=== PATIENT | female | born 1965 | race Caucasian/White ===

== ENCOUNTER 2016-06-11 23:38 | Emergency (ER) | payer OTHER ==
[2016-06-11 23:53] VITALS: O2SAT 98
[2016-06-12] MEDS ORDERED: Sodium Chloride 0.9% 1000 ML 1,000 ML IV STA (00:22)
[2016-06-12] MEDS ORDERED: Reglan 10 MG/2 ML IV ONE (00:22)
[2016-06-12] MEDS ORDERED: BENADRYL 50 MG/ML IV ONE (00:22)
--- NOTE | 2016-06-12 00:27 | ERPHSYRPT ---
- History of Present Illness Time Seen by Provider: 06/12/16 00:05 Source: patient Patient Subjective Stated Complaint: pt states she has had a migraine since about 3. took 2 imitrex at home with no relief. Triage Nursing Assessment: pt alert and oriented, answers questions approp. speech clear. pt ambulatory with steady gait noted. pupils equal and reactive. ext strength equal and strong. Physician History: CC: headache Hx: 50 y/o patient with hx of migraine headaches. She had typical migraine headache for her start at around 3PM and gradually worsen. She has photophobia. She felt sweaty and dizzy. She took imitrex X 2 without relief. Last headache this bad was 1 year ago. No fever or chills. No injury. drove her here. 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 She is a patient of Dr Bennett. ALL: PCN, paregoric, percodan Meds: Levimir which might have worsened headaches, imitrex prn Social: Nonsmoker Timing/Duration: today (3PM) Quality: aching, throbbing Head Pain Location: global Severity of Pain-Max: severe Severity of Pain-Current: severe Recent Head Trauma: occasional headaches Allergies/Adverse Reactions: shellfish derived Allergy (Intermediate, Verified 12/25/15 17:55) Swelling alcohol Allergy (Verified 12/25/15 17:55) anaphylaxis oxycodone HCl [From Percodan] Allergy (Verified 12/25/15 17:55) oxycodone terephthalate [From Percodan] Allergy (Verified 09/10/15 21:17) penicillin G Allergy (Verified 12/25/15 17:55) Penicillins Allergy (Verified 09/10/15 21:17) venom-honey bee [bee venom (honey bee)] Allergy (Verified 12/25/15 17:55) COCONUT Allergy (Uncoded 12/25/15 17:55) LEMON Allergy (Uncoded 12/25/15 17:55) PERIGORIC Allergy (Uncoded 12/25/15 17:55) Home Medications: Loratadine [Claritin] 5 mg PO 12/22/15 [History] Insulin Glargine [Lantus Insulin] 10 unit SQ HS 06/11/16 [History] Hx Tetanus, Diphtheria Vaccination/Date Given: Yes (up to date) Hx Influenza Vaccination/Date Given: No Hx Pneumococcal Vaccination/Date Given: No Immunizations Up to Date: Yes - Review of Systems Constitutional: No Fever, No Chills Eyes: Photophobia, No Vision Changes Ears, Nose, & Throat: No Symptoms Respiratory: No Cough, No Dyspnea Cardiac: No Chest Pain Abdominal/Gastrointestinal: Nausea, No Abdominal Pain, No Vomiting, No Diarrhea Genitourinary Symptoms: No Symptoms Musculoskeletal: No Back Pain, No Neck Pain, No Fall, No Injury Skin: No Rash Neurological: Dizziness, Headache, No Focal Weakness, No Parasthesia All Other Systems: Reviewed and Negative - Past Medical History Pertinent Past Medical History: Yes Neurological History: Migraines ENT History: No Pertinent History Cardiac History: No Pertinent History Respiratory History: No Pertinent History Endocrine Medical History: Diabetes Type II Musculoskeletal History: Other GI Medical History: No Pertinent History History: No Pertinent History Psycho-Social History: No Pertinent History Female Reproductive Disorders: No Pertinent History - Past Surgical History Past Surgical History: Yes Neuro Surgical History: No Pertinent History Cardiac: No Pertinent History Respiratory: No Pertinent History Gastrointestinal: No Pertinent History Genitourinary: No Pertinent History Musculoskeletal: Other Female Surgical History: No Pertinent History Other Surgical History: arthroscopic knee surgery on left knee in 2002 - Social History Smoking Status: Former smoker Exposure to second hand smoke: No Drug Use: none Patient Lives Alone: No Significant Family History: no pertinent family hx - Female History Hx Last Menstrual Period: post Hx Now: No - Nursing Vital Signs Nursing Vital Signs: Initial Vital Signs Temperature 97.9 F Pulse Rate 75 Respiratory Rate 18 Blood Pressure 160/72 Pain Intensity 8 - Physical Exam General Appearance: alert Eye Exam: PERRL/EOMI, photophobia Ears, Nose, Throat Exam: normal ENT inspection, moist mucous membranes Neck Exam: normal inspection, non-tender, supple Respiratory Exam: normal breath sounds, lungs clear Cardiovascular Exam: regular rate/rhythm, No murmur Gastrointestinal/Abdominal Exam: soft, No tenderness, No distention, No mass, No guarding Extremity Exam: normal inspection, normal range of motion Mental Status Exam: alert, oriented x 3, cooperative Motor/Sensory Exam: no motor deficit, no sensory deficit Skin Exam: warm, dry, No rash SpO2 Interpretation: normal SpO2: 98 Oxygen Delivery: Room Air - Course Nursing assessment & vital signs reviewed: Yes Ordered Tests: Active Orders 24 hr Category Date Time Status Accucheck STAT Care 06/12/16 00:22 Active IV Insertion STAT Care 06/12/16 00:22 Active Medication Summary Discontinued Medications Generic Name Dose Route Start Last Admin Trade Name Andreina PRN Reason Stop Dose Admin Diphenhydramine HCl 25 mg 06/12/16 00:22 06/12/16 00:46 Benadryl 50 Mg/Ml IV 06/12/16 00:23 25 mg STAT ONE Administration Diphenhydramine HCl Confirm 06/12/16 00:44 Benadryl 50 Mg/Ml Administered 06/12/16 00:45 Dose 50 mg .ROUTE .STK-MED ONE Sodium Chloride 1,000 mls @ 999 mls/hr 06/12/16 00:22 06/12/16 00:46 Sodium Chloride 0.9% 1000 Ml IV 06/12/16 01:22 999 mls/hr .Q1H1M STA Administration Sodium Chloride Confirm 06/12/16 00:44 Sodium Chloride 0.9% 1000 Ml Administered 06/12/16 00:45 Dose 1,000 mls @ ud .ROUTE .STK-MED ONE Metoclopramide HCl 10 mg 06/12/16 00:22 06/12/16 00:46 Reglan 10 Mg/2 Ml IV 06/12/16 00:23 10 mg STAT ONE Administration Metoclopramide HCl Confirm 06/12/16 00:44 Reglan 10 Mg/2 Ml Administered 06/12/16 00:45 Dose 10 mg .ROUTE .STK-MED ONE - Progress Progress Note: 06/12/16 01:28 Pt was given benadryl and reglan with good headache relief. Will release with instructions. Counseled pt/family regarding: diagnosis, need for follow-up - Departure Time of Disposition: 01:29 Departure Disposition: Home Clinical Impression: Migraine headache Qualifiers: Migraine type: without aura Status migrainosus presence: with status migrainosus Intractability: intractable Qualified Code(s): G43.011 - Migraine without aura, intractable, with status migrainosus Condition: Stable Critical Care Time: No Referrals: KENNETH BENNETT [Primary Care Provider] - Instructions: Headache Additional Instructions: HEADACHE 1. After discharge from the emergency department, you should rest at home in a cool, dark, quiet place for 12-24 hours. 2. If any of the following signs or symptoms are noticed, you should be re- evaluated right away: A. Visual changes B. Stiff Neck C. Change in quality or location of pain D. Fever E. Recurrent vomiting 3. If pain medications were prescribed or given, they may cause drowsiness. No driving tonite and stay with family. Follow up with Dr Bennett. Return for problems or concerns.
[2016-06-12] MEDS ORDERED: Reglan 10 MG/2 ML ONE (00:44)
[2016-06-12] MEDS ORDERED: Sodium Chloride 0.9% 1000 ML 1,000 ML ONE (00:44)
[2016-06-12] MEDS ORDERED: BENADRYL 50 MG/ML ONE (00:44)
[2016-06-12 01:26] VITALS: BP 160/72; PULSE 75
== END 2016-06-12 01:40 | disposition home or self-care (01) ==
LOC: ED 23:38
DX: G43.011 Migraine without aura, intractable, with status migrainosus (principal); E11.9 Type 2 diabetes mellitus without complications; Z79.899 Other long term (current) drug therapy
CPT/HCPCS: 36000; 82962; 96360; 96374; 96375; 99283; J1200

== ENCOUNTER 2016-10-30 01:06 | Emergency (ER) | payer OTHER ==
[2016-10-30 01:16] VITALS: BP 161/95; PULSE 72; O2SAT 98
--- NOTE | 2016-10-30 01:28 | ERPHSYRPT ---
- History of Present Illness Time Seen by Provider: 10/30/16 01:20 Source: patient Exam Limitations: no limitations Patient Subjective Stated Complaint: PATIENT HAD SHOULDER INJURY JULY 03 AND SINCE THEN SHES HAD mri THEY HAVE HER ON bACLOFEN AND SHES SEEING ORTHO , BUT TERRENCE THE DOG JUMPED ON INJURED SHOULDER Triage Nursing Assessment: ANDREINA FLOREZ JUMPED UP ON HER SHOULDER THAT WAS INJURED BACK IN JUNE AND SHE IS STILL SEEKING TREATMENT FOR. SAYS FROM JUNE INJURY SHE HAS THREE TEARS AND DEFORMITY. 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 NO SWELLING NOTED , Physician History: ABOUT 1 HOUR AGO AT HOME PT'S [facility] JUMPED WITH THE DOG'S HEAD HITTING PT'S LEFT SHOULDER WITH RESULTANT PAIN; ADMITS TO PRIOR INJURY OF THE LEFT SHOULDER IN MAY 2016 WITH ONGOING PAIN. PT STATES SHE HAD AN MRI OF THE LEFT SHOULDER LAST WEEK WHICH SHOWED TEARS AND SHE HAS AN APPOINTMENT WITH A SPECIALIST FOR EVALUATION. Allergies/Adverse Reactions: shellfish derived Allergy (Intermediate, Verified 12/25/15 17:55) Swelling alcohol Allergy (Verified 12/25/15 17:55) anaphylaxis oxycodone HCl [From Percodan] Allergy (Verified 12/25/15 17:55) oxycodone terephthalate [From Percodan] Allergy (Verified 09/10/15 21:17) penicillin G Allergy (Verified 12/25/15 17:55) Penicillins Allergy (Verified 09/10/15 21:17) venom-honey bee [bee venom (honey bee)] Allergy (Verified 12/25/15 17:55) COCONUT Allergy (Uncoded 12/25/15 17:55) LEMON Allergy (Uncoded 12/25/15 17:55) PERIGORIC Allergy (Uncoded 12/25/15 17:55) Home Medications: Loratadine [Claritin] 5 mg PO 12/22/15 [History] Insulin Glargine [Lantus Insulin] 10 unit SQ HS 06/11/16 [History] Baclofen 10 mg [Lioresal 10 mg] 10 mg PO TID 10/30/16 [History] Hx Tetanus, Diphtheria Vaccination/Date Given: Yes Hx Influenza Vaccination/Date Given: No Hx Pneumococcal Vaccination/Date Given: No Immunizations Up to Date: Yes - Review of Systems Musculoskeletal: Joint Pain (LEFT SHOULDER) - Past Medical History Pertinent Past Medical History: Yes Neurological History: Migraines ENT History: No Pertinent History Cardiac History: No Pertinent History Respiratory History: No Pertinent History Endocrine Medical History: Diabetes Type II Musculoskeletal History: Other GI Medical History: No Pertinent History History: No Pertinent History Psycho-Social History: No Pertinent History Female Reproductive Disorders: No Pertinent History Other Medical History: PYMIA-BLOOD INFECTION - Past Surgical History Past Surgical History: Yes Neuro Surgical History: No Pertinent History Cardiac: No Pertinent History Respiratory: No Pertinent History Gastrointestinal: No Pertinent History Genitourinary: No Pertinent History Musculoskeletal: Other Female Surgical History: No Pertinent History Other Surgical History: arthroscopic knee surgery on left knee in 2002 - Social History Smoking Status: Never smoker Exposure to second hand smoke: No Drug Use: none Patient Lives Alone: No Significant Family History: no pertinent family hx - Female History Hx Now: No - Nursing Vital Signs Nursing Vital Signs: Initial Vital Signs Temperature 98.2 F Temperature Source Oral Pulse Rate 72 Respiratory Rate 20 Blood Pressure [] 161/95 Pain Intensity 9 - Physical Exam General Appearance: alert Shoulder Exam: limited ROM (ABDUCTION OF THE LEFT SHOULDER TO 30 DEGREES(SAME BEFORE TONIGHTS TRAUMA). ), soft tissue tenderness (LEFT SHOULDER MILDLY TENDER ANTERIORLY WITHOUT EDEMA, ERYTHEMA OR BRUISING.) Elbow/Forearm Exam: normal inspection, normal ROM Wrist Exam: normal inspection, normal ROM Hand Exam: limited ROM (ABOUT 80% FULL FLEXION OF THE LEFT INDEX FINGER(ONGOING SINCE 05/24). ) Neuro/Tendon Exam: normal sensation Mental Status Exam: alert, cooperative Skin Exam: warm, dry SpO2 Interpretation: normal SpO2: 98 Oxygen Delivery: Room Air - Course Nursing assessment & vital signs reviewed: Yes - Radiology Exams Left Shoulder X-ray Interpretation: Interpreted by me, No Fracture Ordered Tests: Active Orders 24 hr Category Date Time Status Sling Application STAT Care 10/30/16 01:30 Active SHOULDER Stat Exams 10/30/16 01:30 Ordered Medication Summary Discontinued Medications Generic Name Dose Route Start Last Admin Trade Name Freq PRN Reason Stop Dose Admin Ketorolac Tromethamine 60 mg 10/30/16 01:29 10/30/16 01:46 Toradol 30 Mg Injection IM 10/30/16 01:30 60 mg STAT ONE Administration Ketorolac Tromethamine Confirm 10/30/16 01:42 Toradol 30 Mg Injection Administered 10/30/16 01:43 Dose 60 mg .ROUTE .STK-MED ONE - Departure Time of Disposition: 01:52 Departure Disposition: Home Clinical Impression: LEFT SHOULDER SPRAIN Condition: Fair Critical Care Time: No Referrals: LUCINDA PELLETIER [Primary Care Provider] - Instructions: Shoulder Sprain Additional Instructions: FOLLOW UP WITH PRIVATE DOCTOR TOMORROW. WEAR LEFT ARM SLING FOR COMFORT. Prescriptions: Naproxen [Naprosyn] 500 mg PO [id number] PRN #0 tablet PRN Reason: Pain
[2016-10-30] MEDS ORDERED: TORAdol 30 mg Injection IM ONE (01:29)
[2016-10-30] MEDS ORDERED: TORAdol 30 mg Injection ONE (01:42)
--- NOTE | 2016-10-30 08:47 | XRAY ---
Indication: Pain following injury. Comparison: August 12, 2016. 3 views of the left shoulder obtained. Again no bony, articular, or soft tissue abnormalities.
== END 2016-10-30 02:05 | disposition home or self-care (01) ==
LOC: ED 01:06
DX: S43.402A Unspecified sprain of left shoulder joint, initial encounter (principal); W54.1XXA Struck by dog, initial encounter; M25.512 Pain in left shoulder
CPT/HCPCS: 73030; 96372; 99284; J1885

== ENCOUNTER 2016-12-07 23:39 | Emergency (ER) | payer OTHER ==
[2016-12-07] MEDS ORDERED: Sodium Chloride 0.9% 1000 ML 1,000 ML IV SCH (23:45)
--- NOTE | 2016-12-07 23:55 | ERPHSYRPT ---
- History of Present Illness Time Seen by Provider: 12/07/16 23:49 Source: patient Exam Limitations: no limitations Physician History: pt has chronic left shoulder pain from frequent dislocations with brachial plexus injury and labrum tears on recent MRI, and fell on this same shoulder tonight , although does not feel dislocated to pt , just increased pain; no other complaint of injury. neurovascular is intact, but stable chronic paresthesias are present in left UE ; no neck pain or trauma tonight. no CP or SObreath. ROM left shoulder is limited and about same as usual per pt. tender left shoulder , increased above chronic baseline per pt. Occurred: just prior to arrival Method of Injury: fell Quality: constant, sharpness, stabbing, throbbing Severity of Pain-Max: moderate Severity of Pain-Current: moderate Extremities Pain Location: shoulder: left Modifying Factors: Improves With: immobilization, movement Associated Symptoms: none Allergies/Adverse Reactions: shellfish derived Allergy (Intermediate, Verified 12/07/16 23:57) Swelling alcohol Allergy (Verified 12/07/16 23:57) anaphylaxis oxycodone HCl [From Percodan] Allergy (Verified 12/07/16 23:57) oxycodone terephthalate [From Percodan] Allergy (Verified 12/07/16 23:57) penicillin G Allergy (Verified 12/07/16 23:57) Penicillins Allergy (Verified 12/07/16 23:57) venom-honey bee [bee venom (honey bee)] Allergy (Verified 12/07/16 23:57) COCONUT Allergy (Uncoded 12/07/16 23:57) LEMON Allergy (Uncoded 12/07/16 23:57) PERIGORIC Allergy (Uncoded 12/07/16 23:57) Home Medications: Insulin Detemir [Levemir] 10 unit SQ DAILY 12/07/16 [History] Hx Tetanus, Diphtheria Vaccination/Date Given: Yes Hx Influenza Vaccination/Date Given: No Hx Pneumococcal Vaccination/Date Given: No - Review of Systems Constitutional: No Fever, No Chills Eyes: No Symptoms Ears, Nose, & Throat: No Symptoms Respiratory: No Cough, No Dyspnea Cardiac: No Chest Pain, No Edema, No Syncope Abdominal/Gastrointestinal: No Abdominal Pain, No Nausea, No Vomiting, No Diarrhea Genitourinary Symptoms: No Dysuria Musculoskeletal: Fall, Joint Pain, No Back Pain, No Neck Pain Skin: No Rash Neurological: No Dizziness, No Focal Weakness, No Sensory Changes Psychological: No Symptoms Endocrine: No Symptoms All Other Systems: Reviewed and Negative - Past Medical History Pertinent Past Medical History: Yes Neurological History: Migraines ENT History: No Pertinent History Cardiac History: No Pertinent History Respiratory History: No Pertinent History Endocrine Medical History: Diabetes Type II Musculoskeletal History: Other GI Medical History: No Pertinent History History: No Pertinent History Psycho-Social History: No Pertinent History Female Reproductive Disorders: No Pertinent History Other Medical History: PYMIA-BLOOD INFECTION - Past Surgical History Past Surgical History: Yes Neuro Surgical History: No Pertinent History Cardiac: No Pertinent History Respiratory: No Pertinent History Gastrointestinal: No Pertinent History Genitourinary: No Pertinent History Musculoskeletal: Other Female Surgical History: No Pertinent History Other Surgical History: arthroscopic knee surgery on left knee in 2001 - Social History Smoking Status: Never smoker Exposure to second hand smoke: No Drug Use: none Patient Lives Alone: No Significant Family History: no pertinent family hx - Female History Hx Now: No - Nursing Vital Signs Nursing Vital Signs: Initial Vital Signs Temperature 98.2 F Temperature Source Oral Pulse Rate 74 Respiratory Rate 16 Blood Pressure [] 144/69 Pain Intensity 5 - Physical Exam General Appearance: no apparent distress, alert Eyes, Ears, Nose, Throat Exam: moist mucous membranes Neck Exam: normal inspection, non-tender, supple, full range of motion Cardiovascular/Respiratory Exam: chest non-tender, normal breath sounds, regular rate/rhythm, no respiratory distress Abdominal Exam: non-tender, No guarding Back Exam: normal inspection, No vertebral tenderness Shoulder Exam: bone tenderness, limited ROM, pain, soft tissue tenderness Elbow/Forearm Exam: normal inspection, non-tender, no evidence of injury, normal ROM Wrist Exam: normal inspection, non-tender, no evidence of injury, normal ROM Hand Exam: normal inspection, non-tender, no evidence of injury, deformity ( stable limited ROM left index at PIP without change and not injured in this fall per pt. ) DTR - Upper Extremity Exam: bicep (R): 2+, bicep (L): 2+, tricep (R): 2+, tricep (L): 2+ Neuro/Tendon Exam: normal sensation, normal motor functions, normal tendon functions Mental Status Exam: alert, oriented x 3, cooperative Skin Exam: normal color, warm, dry - Course Nursing assessment & vital signs reviewed: Yes - Radiology Exams Left Shoulder X-ray Interpretation: Reviewed by me, Other (possible chip avulsion fx and hill sachs of unknown age) Ordered Tests: Active Orders 24 hr Category Date Time Status IV Insertion STAT Care 12/07/16 23:57 Active SHOULDER Stat Exams 12/07/16 23:57 Ordered Medication Summary Generic Name Dose Route Start Last Admin Trade Name Freq PRN Reason Stop Dose Admin Sodium Chloride 1,000 mls @ 100 mls/hr 12/07/16 23:45 12/08/16 00:25 Sodium Chloride 0.9% 1000 Ml IV 01/06/17 23:44 100 mls/hr .Q10H APURVA Administration Discontinued Medications Generic Name Dose Route Start Last Admin Trade Name Freq PRN Reason Stop Dose Admin Diphenhydramine HCl 25 mg 12/07/16 23:57 12/08/16 00:24 Benadryl 50 Mg/Ml IV 12/07/16 23:58 25 mg STAT ONE Administration Diphenhydramine HCl Confirm 12/08/16 00:17 Benadryl 50 Mg/Ml Administered 12/08/16 00:18 Dose 50 mg .ROUTE .STK-MED ONE Diphenhydramine HCl 25 mg 12/08/16 00:52 12/08/16 01:02 Benadryl 50 Mg/Ml IV 12/08/16 00:53 25 mg STAT ONE Administration Diphenhydramine HCl Confirm 12/08/16 00:59 Benadryl 50 Mg/Ml Administered 12/08/16 01:00 Dose 50 mg .ROUTE .STK-MED ONE Ketorolac Tromethamine 30 mg 12/07/16 23:57 12/08/16 00:25 Toradol 30 Mg Injection IV 12/07/16 23:58 30 mg STAT ONE Administration Ketorolac Tromethamine Confirm 12/08/16 00:17 Toradol 30 Mg Injection Administered 12/08/16 00:18 Dose 30 mg .ROUTE .STK-MED ONE Morphine Sulfate 4 mg 12/07/16 23:57 12/08/16 00:24 Morphine Sulfate 4 Mg Inj IV 12/07/16 23:58 4 mg STAT ONE Administration Morphine Sulfate Confirm 12/08/16 00:18 Morphine Sulfate 4 Mg Inj Administered 12/08/16 00:19 Dose 4 mg .ROUTE .STK-MED ONE Morphine Sulfate 6 mg 12/08/16 00:52 12/08/16 01:06 Morphine Sulfate 10 Mg/Ml IV 12/08/16 00:53 6 mg STAT ONE Administration Morphine Sulfate Confirm 12/08/16 01:00 Morphine Sulfate 4 Mg Inj Administered 12/08/16 01:01 Dose 4 mg .ROUTE .STK-MED ONE Morphine Sulfate Confirm 12/08/16 01:06 Morphine Sulfate 2 Mg Inj Administered 12/08/16 01:07 Dose 2 mg .ROUTE .STK-MED ONE Ondansetron HCl 4 mg 12/07/16 23:57 12/08/16 00:25 Zofran 4 Mg/2 Ml Vial IV 12/07/16 23:58 4 mg STAT ONE Administration Ondansetron HCl Confirm 12/08/16 00:17 Zofran 4 Mg/2 Ml Vial Administered 12/08/16 00:18 Dose 4 mg .ROUTE .STK-MED ONE - Progress Progress: improved, re-examined Progress Note: 12/08/16 00:53 pain controlled , advised pt of need to f/u ortho /PCP and to return meantime if not improving. no objective evidence for any increased injury to brachial plexus injury at this time on exam. 12/08/16 00:56 c-spine remains nontender and without symptoms meeting chinese criteria. 12/08/16 00:59 pt declines sling/immob at this time , and will use her own. pt has phillip hydrocodone in past , but only reacts to oxycodone and paragoric per her hx. Counseled pt/family regarding: diagnosis, need for follow-up, rad results - Departure Time of Disposition: 00:55 Departure Disposition: Home Clinical Impression: left shoulder exacerbation Condition: Good Critical Care Time: No Referrals: LUCINDA PELLETIER [Primary Care Provider] - Instructions: Shoulder Fracture, Shoulder Pain Additional Instructions: followup with your primary Dr. or ORtho , final radiology reading will be later tomorrow. return meantime if any concerns or new symptoms. followup with your Dr for BP if remains above 130/85 Prescriptions: Hydrocodone/Acetaminophen [[place] 5-325 Tablet] 1 each PO Q4-6HPRN PRN #14 tablet PRN Reason: Pain Metaxalone [Skelaxin] 800 mg PO TID PRN #14 tablet
[2016-12-07] MEDS ORDERED: MORPHINE SULFATE 4 MG INJ IV ONE (23:57)
[2016-12-07] MEDS ORDERED: Zofran 4 MG/2 ML VIAL IV ONE (23:57)
[2016-12-07] MEDS ORDERED: TORAdol 30 mg Injection IV ONE (23:57)
[2016-12-07] MEDS ORDERED: BENADRYL 50 MG/ML IV ONE (23:57)
[2016-12-08] MEDS ORDERED: Zofran 4 MG/2 ML VIAL ONE (00:17)
[2016-12-08] MEDS ORDERED: BENADRYL 50 MG/ML ONE ×2 (00:17→00:59)
[2016-12-08] MEDS ORDERED: TORAdol 30 mg Injection ONE (00:17)
[2016-12-08] MEDS ORDERED: MORPHINE SULFATE 4 MG INJ ONE ×2 (00:18→01:00)
[2016-12-08] MEDS ORDERED: Sodium Chloride 0.9% 1000 ML 1,000 ML ONE (00:18)
[2016-12-08] MEDS ORDERED: BENADRYL 50 MG/ML IV ONE (00:52)
[2016-12-08] MEDS ORDERED: MORPHINE SULFATE 10 MG/ML IV ONE (00:52)
[2016-12-08] MEDS ORDERED: MORPHINE SULFATE 2 MG INJ ONE (01:06)
[2016-12-08 02:15] VITALS: BP 126/73; PULSE 72; O2SAT 96
--- NOTE | 2016-12-08 08:35 | XRAY ---
Indication: Shoulder pain following fall. Comparison: October 30, 2016. 3 views of the left shoulder demonstrates stable tiny greater tuberosity osteophyte. No new/acute bony, articular, or soft tissue abnormalities.
== END 2016-12-08 02:20 | disposition home or self-care (01) ==
LOC: ED 23:39
DX: M25.512 Pain in left shoulder (principal); W19.XXXA Unspecified fall, initial encounter; E11.9 Type 2 diabetes mellitus without complications; Z79.899 Other long term (current) drug therapy
CPT/HCPCS: 36000; 73030; 96360; 96374; 96375; 96376; 99284; J1200; J1885; J2270; J2405

== ENCOUNTER 2017-09-01 22:02 | Emergency (ER) | payer OTHER ==
[2017-09-01] MEDS ORDERED: Hydromorphone 1 mg/ml Ampule IV ONE (22:43)
[2017-09-01] MEDS ORDERED: Phenergan 25 MG INJ IV ONE (22:43)
[2017-09-01] MEDS ORDERED: Sodium Chloride 0.9% 1000 ML 1,000 ML IV SCH (22:45)
--- NOTE | 2017-09-01 23:03 | ERPHSYRPT ---
- History of Present Illness Time Seen by Provider: 09/01/17 22:32 Source: patient Exam Limitations: no limitations Patient Subjective Stated Complaint: Headache Triage Nursing Assessment: Pt arrives to ER with c/o headache that began 3 days ago stating woke up with headache. States hit her head 1 week ago today, "saw stars", denies LOC or any problems since then until 3 days ago. Pt also checked blood sugar at 2130 found to be 310, took 11 units of Lantus and 750mg Metformin immediately after. Pt states sugar has been fine the past couple days , from 90's to 110's. Pt also hypertensive upon arrival, rechecked with larger, more appropriate fitting cuff and found to be accurate. Pt states has hx of Migraines but this is different stating is normally on right side and no accompanied nausea. today states has nausea without vomiting and pain is from left temporal to right temporal and pounding. Pain not relieved by Imitrex, in fact seemed to make worse. States also took 1/4th [place] pill with minimal relief. A&OX4 Physician History: ONE WEEK AGO PT HIT THE BACK OF HER HEAD ON A JEEP AND SAW STARS. THREE DAYS AGO PT STARTED WITH A BI-TEMPORAL/FRONTAL HEADACHE, DIZZINESS(VERTIGO) AND NAUSEA. PT DENIES SHORTNESS OF AIR, WEAKNESS, NUMBNESS/TINGLING, VOMITING. Allergies/Adverse Reactions: shellfish derived Allergy (Intermediate, Verified 09/01/17 22:31) Swelling alcohol Allergy (Verified 09/01/17 22:31) anaphylaxis oxycodone HCl [From Percodan] Allergy (Verified 09/01/17 22:31) oxycodone terephthalate [From Percodan] Allergy (Verified 09/01/17 22:31) penicillin G Allergy (Verified 09/01/17 22:31) Penicillins Allergy (Verified 09/01/17 22:31) venom-honey bee [bee venom (honey bee)] Allergy (Verified 09/01/17 22:31) COCONUT Allergy (Uncoded 09/01/17 22:31) LEMON Allergy (Uncoded 09/01/17 22:31) PERIGORIC Allergy (Uncoded 09/01/17 22:31) Home Medications: Insulin Detemir [Levemir] 10 unit SQ DAILY 12/07/16 [History] Diclofenac Sodium 75 mg PO BID 09/01/17 [History] Epinephrine [Epipen] 0.3 mg IM CLARIFY PRN 09/01/17 [History] Gabapentin [Gabapentin] 300 mg PO TID 09/01/17 [History] Indomethacin 50 mg PO TID 09/01/17 [History] Melatonin 4 mg PO HS PRN 09/01/17 [History] Metformin HCl 500 mg [Glucophage 500 MG] 750 mg PO BID 09/01/17 [History] Phentermine HCl 37.5 mg PO DAILY 09/01/17 [History] Sumatriptan Succinate [Imitrex 50 mg] 50 mg PO Q6HPRN PRN 09/01/17 [History] Hx Tetanus, Diphtheria Vaccination/Date Given: Yes Hx Influenza Vaccination/Date Given: Yes Hx Pneumococcal Vaccination/Date Given: Yes Immunizations Up to Date: Yes - Review of Systems Respiratory: No Dyspnea Abdominal/Gastrointestinal: Nausea, No Vomiting Neurological: Dizziness, Headache, No Focal Weakness, No Sensory Changes All Other Systems: Reviewed and Negative - Past Medical History Pertinent Past Medical History: Yes Neurological History: Migraines ENT History: No Pertinent History Cardiac History: No Pertinent History Respiratory History: No Pertinent History Endocrine Medical History: Diabetes Type II Musculoskeletal History: Other GI Medical History: No Pertinent History History: No Pertinent History Psycho-Social History: No Pertinent History Female Reproductive Disorders: No Pertinent History Other Medical History: PYMIA-BLOOD INFECTION - Past Surgical History Past Surgical History: Yes Neuro Surgical History: No Pertinent History Cardiac: No Pertinent History Respiratory: No Pertinent History Gastrointestinal: No Pertinent History Genitourinary: No Pertinent History Musculoskeletal: Other Female Surgical History: No Pertinent History Other Surgical History: arthroscopic knee surgery on left knee in 2001 - Social History Smoking Status: Former smoker Exposure to second hand smoke: Yes Drug Use: none Patient Lives Alone: No Significant Family History: no pertinent family hx - Female History Hx Last Menstrual Period: postmenopausal Hx Now: No - Nursing Vital Signs Nursing Vital Signs: Initial Vital Signs Temperature 98.3 F 09/01/17 22:08 Pulse Rate 77 09/01/17 22:08 Respiratory Rate 18 09/01/17 22:08 Blood Pressure 185/86 09/01/17 22:08 O2 Sat by Pulse Oximetry 99 09/01/17 22:08 Pain Scale Pain Intensity 6 - Physical Exam General Appearance: alert Eye Exam: PERRL/EOMI Ears, Nose, Throat Exam: TMs normal, pharynx normal, moist mucous membranes Neck Exam: normal inspection, full range of motion Respiratory Exam: lungs clear Cardiovascular Exam: normal heart sounds Gastrointestinal/Abdomen Exam: soft, normal bowel sounds Back Exam: normal range of motion Extremity Exam: normal range of motion Neurologic Exam: alert, cooperative, normal mood/affect, sensation nml, No motor deficits, No motor weakness Skin Exam: warm, dry SpO2 Interpretation: normal SpO2: 99 Oxygen Delivery: Room Air - Course Nursing assessment & vital signs reviewed: Yes Ordered Tests: Active Orders 24 hr Category Date Time Status HEAD WITHOUT CONTRAST [CT] Stat Exams 09/01/17 22:42 Taken AMYLASE Stat Lab 09/01/17 23:10 Completed CBC W DIFF Stat Lab 09/01/17 23:10 Completed CMP Stat Lab 09/01/17 23:10 Completed CULTURE,URINE Stat Lab 09/01/17 22:43 Received LIPASE Stat Lab 09/01/17 23:10 Completed MAGNESIUM Stat Lab 09/01/17 23:10 Completed UA W/ MICROSCOPIC Stat Lab 09/01/17 22:43 Completed Medication Summary Generic Name Dose Route Start Last Admin Trade Name Freq PRN Reason Stop Dose Admin Sodium Chloride 1,000 mls @ 100 mls/hr 09/01/17 22:45 09/01/17 23:27 Sodium Chloride 0.9% 1000 Ml IV 10/01/17 22:44 100 mls/hr .Q10H APURVA Administration Ceftriaxone Sodium/Dextrose 1 g in 50 mls @ 100 mls/hr 09/01/17 23:51 23:57 Rocephin 1 Gm-D5w 50 Ml Bag IV 09/02/17 00:20 100 mls/hr STAT STA Administration Sodium Chloride 1,000 mls @ 999 mls/hr 09/01/17 23:52 09/01/17 23:55 Sodium Chloride 0.9% 1000 Ml IV 09/02/17 00:52 999 mls/hr .Q1H1M STA Administration Discontinued Medications Generic Name Dose Route Start Last Admin Trade Name Freq PRN Reason Stop Dose Admin Hydromorphone HCl 1 mg 09/01/17 22:43 09/01/17 23:26 Hydromorphone 1 Mg/Ml Ampule IV 09/01/17 22:44 1 mg STAT ONE Administration Hydromorphone HCl Confirm 09/01/17 23:13 Dilaudid 2 Mg Injection Administered 09/01/17 23:14 Dose 2 mg .ROUTE .STK-MED ONE Ceftriaxone Sodium/Dextrose Confirm 09/01/17 23:55 Rocephin 1 Gm-D5w 50 Ml Bag Administered 09/01/17 23:56 Dose 1 g in 50 mls @ ud IV .STK-MED ONE Promethazine HCl 12.5 mg 09/01/17 22:43 09/01/17 23:26 Phenergan 25 Mg Inj IV 09/01/17 22:44 12.5 mg STAT ONE Administration Promethazine HCl Confirm 09/01/17 23:11 Phenergan 25 Mg Inj Administered 09/01/17 23:12 Dose 25 mg .ROUTE .STK-MED ONE Lab/Rad Data: Laboratory Result Diagrams 09/01/17 23:10 09/01/17 23:10 Laboratory Results 09/01/17 09/01/17 09/01/17 Range/Units 23:10 23:10 22:43 WBC 9.2 (4.0-10.5) K/mm3 RBC 4.21 (4.1-5.4) M/mm3 Hgb 12.8 (12.0-16.0) gm/dl Hct 38.4 (35-47) % MCV 91.2 (78-100) fl MCH 30.4 (26-32) pg MCHC 33.3 (32-36) g/dl RDW 12.9 (11.5-14.0) % Plt Count 317 (150-450) K/mm3 MPV 10.6 H (6-9.5) fl Gran % 62.3 (36.0-66.0) % Eos # (Auto) 0.20 (0-0.5) Absolute Lymphs (auto) 2.48 (1.0-4.6) Absolute Monos (auto) 0.76 (0.0-1.3) Lymphocytes % 27.0 (24.0-44.0) % Monocytes % 8.3 (0.0-12.0) % Eosinophils % 2.2 (0.00-5.0) % Basophils % 0.2 (0.0-0.4) % Absolute Granulocytes 5.73 (1.4-6.9) Basophils # 0.02 (0-0.4) Sodium 137 (137-145) mmol/L Potassium 4.0 (3.5-5.1) mmol/L Chloride 102 (98-107) mmol/L Carbon Dioxide 24 (22-30) mmol/L Anion Gap 15.1 H (5-15) MEQ/L BUN 18 H (7-17) mg/dL Creatinine 0.75 (0.52-1.04) mg/dL Estimated GFR > 60 ML/MIN Glucose 240 H (74-106) mg/dL Calcium 9.4 (8.4-10.2) mg/dL Magnesium 2.0 (1.6-2.3) mg/dL Total Bilirubin 0.80 (0.2-1.3) mg/dL AST 15 (14-36) U/L ALT 20 (0-35) U/L Alkaline Phosphatase 115 (38-126) U/L Serum Total Protein 7.6 (6.3-8.2) g/dL Albumin 4.0 (3.5-5.0) g/dL Amylase 68 (30-110) U/L Lipase 117 (23-300) U/L Ur Collection Type VOID Urine Color YELLOW (YELLOW) Urine Appearance SLIGHTLY CLOUDY (CLEAR) Urine pH 5.0 (5-6) Ur Specific [place] 1.020 (1.005-1.025) Urine Protein NEGATIVE (Negative) Urine Ketones NEGATIVE (NEGATIVE) Urine Blood TRACE NON-HEM (0-5) [place]ese/ul Urine Nitrite NEGATIVE (NEGATIVE) Urine Bilirubin NEGATIVE (NEGATIVE) Urine Urobilinogen NORMAL (0-1) mg/dL Ur Leukocyte Esterase 2+ (NEGATIVE) Urine Microscopic RBC 15-25 (0-2) /HPF Urine Microscopic WBC 25-50 (0-5) /HPF Ur Epithelial Cells MODERATE (FEW) /HPF Urine Bacteria MODERATE (NEGATIVE) /HPF Urine Mucus SLIGHT (NEGATIVE) /HPF Urine Culture Reflexed YES (NO) Urine Glucose 1000 (NEGATIVE) mg/dL Specimen Received 09/01/17 2300 - Departure Time of Disposition: 00:10 Departure Disposition: Home Clinical Impression: UTI, HEADACHE, DM Condition: Stable Critical Care Time: No Referrals: LUCINDA PELLETIER [Primary Care Provider] - Instructions: Urinary Tract Infection, Adult (DC), Headache, Adult (DC) Additional Instructions: FOLLOW UP WITH PRIVATE DOCTOR TOMORROW. Prescriptions: Promethazine HCl 25 mg [Phenergan 25 mg] 25 mg PO Q4H PRN PRN #14 tablet PRN Reason: Nausea/Vomiting Nitrofurantoin Macro 100 mg [Macrobid 100MG Capsule] 100 mg PO BID #20 capsule
[2017-09-01] MEDS ORDERED: Phenergan 25 MG INJ ONE (23:11)
[2017-09-01] MEDS ORDERED: Sodium Chloride 0.9% 1000 ML 1,000 ML ONE (23:13)
[2017-09-01] MEDS ORDERED: DILAUDID 2 MG INJECTION ONE (23:13)
[2017-09-01 23:15] LABS: BASOPHIL % 0.2 % (0.0-0.4); Basophil (Absolute #) 0.02 (0-0.4); Eosinophil % 2.2 % (0.00-5.0); Granulocyte Absolute (ANC) 5.73 (1.4-6.9); Granulocytes % 62.3 % (36.0-66.0); Hematocrit 38.4 % (35-47); Hemoglobin 12.8 gm/dl (12.0-16.0); Lymphocyte (Absolute #) 2.48 (1.0-4.6); Mean Cell Volume 91.2 fl (78-100); Mean Corpuscular Hemoglobin 30.4 pg (26-32); Mean Corpuscular Hgb Concent. 33.3 g/dl (32-36); Mean Platelet Volume 10.6 fl (6-9.5); Monocyte (Absolute #) 0.76 (0.0-1.3); Monocytes % 8.3 % (0.0-12.0); Platelet Count 317 K/mm3 (150-450); Red Blood Count 4.21 M/mm3 (4.1-5.4); Red Cell Distribution Width 12.9 % (11.5-14.0); White Blood Count 9.2 K/mm3 (4.0-10.5)
[2017-09-01 23:32] LABS: ALKALINE PHOSPHATASE 115 U/L (38-126); AMYLASE 68 U/L (30-110); ANION GAP 15.1 MEQ/L (5-15); BLOOD UREA NITROGEN 18 mg/dL (7-17); CHLORIDE 102 mmol/L (98-107); Calcium 9.4 mg/dL (8.4-10.2); Carbon Dioxide 24 mmol/L (22-30); Creatinine 1 0.75 mg/dL (0.52-1.04); Glucose 240 mg/dL (74-106); LIPASE 117 U/L (23-300); SGOT/AST 15 U/L (14-36); SGPT/ALT 20 U/L (0-35); SODIUM 137 mmol/L (137-145); Total Protein 7.6 g/dL (6.3-8.2)
[2017-09-01 23:36] LABS: Appearance SLIGHTLY CLOUDY (CLEAR); Bacteria MODERATE /HPF (NEGATIVE); Bilirubin NEGATIVE (NEGATIVE); Blood TRACE NON-HEM Ery/ul (0-5); Epithelial Cells MODERATE /HPF (FEW); Glucose 1000 mg/dL (NEGATIVE); Ketones NEGATIVE (NEGATIVE); Leukocyte Esterase 2+ (NEGATIVE); Mucus SLIGHT /HPF (NEGATIVE); Nitrite NEGATIVE (NEGATIVE); Protein,Urine Dip NEGATIVE (Negative); Urobilinogen NORMAL mg/dL (0-1); WBC 25-50 /HPF (0-5)
[2017-09-01] MEDS ORDERED: ROCEPHIN 1 Gm-D5w 50 ml Bag** 1 G/50 ML IVPB IV STA (23:51)
[2017-09-01] MEDS ORDERED: Sodium Chloride 0.9% 1000 ML 1,000 ML IV STA (23:52)
[2017-09-01] MEDS ORDERED: ROCEPHIN 1 Gm-D5w 50 ml Bag** 1 G/50 ML IVPB IV ONE (23:55)
[2017-09-02 00:09] VITALS: BP 160/85; PULSE 64
[2017-09-02 00:10] VITALS: O2SAT 99
[2017-09-02] MEDS ORDERED: Hydromorphone 1 mg/ml Ampule IV ONE (00:10)
[2017-09-02] MEDS ORDERED: Zofran 4 MG/2 ML VIAL IV ONE (00:10)
[2017-09-02] MEDS ORDERED: Zofran 4 MG/2 ML VIAL ONE (00:22)
[2017-09-02] MEDS ORDERED: DILAUDID 2 MG INJECTION ONE (00:23)
--- NOTE | 2017-09-02 08:40 | XRAY ---
Indication: Headache, dizziness, and nausea following head injury 3 days ago. Multiple contiguous axial images obtained through the head without contrast. Comparison: December 25, 2015. Again normal appearing brain parenchyma, ventricles, and bony calvarium. Mild mucosal thickening of the left ethmoid sinus. Remaining visualized paranasal sinuses and mastoid air cells are clear. Impression: Again no acute intracranial abnormalities. Mild paranasal sinus disease. Comment: Preliminary interpretation was made by [facility]. No critical discrepancy. CT DI 52.19
== END 2017-09-02 01:10 | disposition home or self-care (01) ==
LOC: ED 22:02
DX: N39.0 Urinary tract infection, site not specified (principal); R51 Headache; E11.9 Type 2 diabetes mellitus without complications; Z79.4 Long term (current) use of insulin; Z79.899 Other long term (current) drug therapy
CPT/HCPCS: 36000; 36415; 70450; 80053; 81000; 82150; 83690; 83735; 85025; 87086; 96360; 96365; 96374; 96375; 99284; J0696; J1170; J2405; J2550

== ENCOUNTER 2018-02-24 22:32 | Emergency (ER) | payer OTHER ==
[2018-02-24] MEDS ORDERED: CLEOCIN 150 MG CAPSULE PO ONE (23:09)
--- NOTE | 2018-02-24 23:09 | ERPHSYRPT ---
- History of Present Illness Time Seen by Provider: 02/24/18 23:04 Source: patient, family Exam Limitations: no limitations Patient Subjective Stated Complaint: Left outer lower leg pain Triage Nursing Assessment: Patient stated she rolled her left ankle on Thursday then got a new tattoo to left outer leg Thursday. Patient scraped left outer leg where new tatoo is on metal step. Patient's left lower outer leg noted to be red and swollen. New tattoo noted to left lower outer extremity scabbed, red and swollen. Patient's left leg 4+ pitting edema. Patient states pain is 9/10. Physician History: The patient is a 52-year-old female with her complaining that she may have cellulitis of her new tattoo on her lower left leg. She had a new tattoo placed on her left leg on Thursday and she scraped the same area with a piece of metal accidentally on Thursday. Now today the whole area is swollen, red, and tender. She denies fever. She also twisted her ankle on but it is not concerned about the ankle. Her past medical history significant for diabetes. Timing/Duration: day(s) (3), gradual onset, worse Quality: painful Severity: moderate Location: extremities (left lower leg) Possible Causes: other (tatoo) Associated Symptoms: rash Allergies/Adverse Reactions: shellfish derived Allergy (Intermediate, Verified 02/24/18 22:55) Swelling alcohol Allergy (Verified 02/24/18 22:55) anaphylaxis oxycodone HCl [From Percodan] Allergy (Verified 02/24/18 22:55) oxycodone terephthalate [From Percodan] Allergy (Verified 02/24/18 22:55) penicillin G Allergy (Verified 02/24/18 22:55) Penicillins Allergy (Verified 02/24/18 22:55) venom-honey bee [bee venom (honey bee)] Allergy (Verified 02/24/18 22:55) COCONUT Allergy (Uncoded 02/24/18 22:55) LEMON Allergy (Uncoded 02/24/18 22:55) PERIGORIC Allergy (Uncoded 02/24/18 22:55) Home Medications: Insulin Detemir [Levemir] 10 unit SQ DAILY 12/07/16 [History] Diclofenac Sodium 75 mg PO BID 09/01/17 [History] Epinephrine [Epipen] 0.3 mg IM CLARIFY PRN 09/01/17 [History] Gabapentin 300 mg PO TID 09/01/17 [History] Indomethacin 50 mg PO TID 09/01/17 [History] Melatonin 4 mg PO HS PRN 09/01/17 [History] Metformin HCl 500 mg [Glucophage 500 MG] 750 mg PO BID 09/01/17 [History] Phentermine HCl 37.5 mg PO DAILY 09/01/17 [History] SUMAtriptan succinate [Imitrex 50 mg] 50 mg PO Q6HPRN PRN 09/01/17 [History] Hx Tetanus, Diphtheria Vaccination/Date Given: No Hx Influenza Vaccination/Date Given: No Hx Pneumococcal Vaccination/Date Given: No Immunizations Up to Date: Yes - Review of Systems Constitutional: No Fever, No Chills Eyes: No Symptoms Ears, Nose, & Throat: No Symptoms Respiratory: No Cough, No Dyspnea Cardiac: No Chest Pain, No Edema, No Syncope Abdominal/Gastrointestinal: No Abdominal Pain, No Nausea, No Vomiting, No Diarrhea Genitourinary Symptoms: No Dysuria Musculoskeletal: No Back Pain, No Neck Pain Skin: Cellulitis Neurological: No Dizziness, No Focal Weakness, No Sensory Changes Psychological: No Symptoms Endocrine: No Symptoms Hematologic/Lymphatic: No Symptoms Immunological/Allergic: No Symptoms All Other Systems: Reviewed and Negative - Past Medical History Pertinent Past Medical History: Yes Neurological History: Migraines ENT History: No Pertinent History Cardiac History: No Pertinent History Respiratory History: No Pertinent History Endocrine Medical History: Diabetes Type II Musculoskeletal History: Other GI Medical History: No Pertinent History History: No Pertinent History Psycho-Social History: No Pertinent History Female Reproductive Disorders: No Pertinent History Other Medical History: PYMIA-BLOOD INFECTION - Past Surgical History Past Surgical History: Yes Neuro Surgical History: No Pertinent History Cardiac: No Pertinent History Respiratory: No Pertinent History Gastrointestinal: No Pertinent History Genitourinary: No Pertinent History Musculoskeletal: Other Female Surgical History: No Pertinent History Other Surgical History: arthroscopic knee surgery on left knee in 2001 - Social History Smoking Status: Never smoker Exposure to second hand smoke: Yes Drug Use: none Patient Lives Alone: No Significant Family History: no pertinent family hx - Female History Hx Last Menstrual Period: Menopausal 2003 Hx Now: No - Nursing Vital Signs Nursing Vital Signs: Initial Vital Signs Temperature 98.9 F 02/24/18 22:42 Pulse Rate 70 02/24/18 22:42 Respiratory Rate 18 02/24/18 22:42 Blood Pressure 155/76 02/24/18 22:42 O2 Sat by Pulse Oximetry 97 02/24/18 22:42 Pain Scale Pain Intensity 9 - Physical Exam General Appearance: no apparent distress, alert Eye Exam: PERRL/EOMI, eyes nml inspection Ears, Nose, Throat Exam: normal ENT inspection, pharynx normal, moist mucous membranes Neck Exam: normal inspection, non-tender, supple, full range of motion Respiratory Exam: normal breath sounds (she became allergic to r), lungs clear, No respiratory distress Cardiovascular Exam: regular rate/rhythm, normal heart sounds Gastrointestinal/Abdomen Exam: soft, mass, No tenderness Pelvic Exam: not done ( with good place. Unkno) Rectal Exam: not done Back Exam: normal inspection, normal range of motion, No CVA tenderness, No vertebral tenderness Extremity Exam: normal inspection, normal range of motion Neurologic Exam: alert, oriented x 3, cooperative, normal mood/affect, sensation nml, No motor deficits Skin Exam: warm, rash (red), other (no purulent discharge) SpO2 Interpretation: normal SpO2: 97 Oxygen Delivery: Room Air - Departure Time of Disposition: 23:09 Departure Disposition: Home Clinical Impression: Cellulitis Condition: Stable Critical Care Time: No Referrals: LUCINDA PELLETIER [Primary Care Provider] - Additional Instructions: You have cellulitis at the area of your tattoo on your left leg. You were given clindamycin 300 mg orally in the ER. You were also given a tetanus vaccination. Continue to take clindamycin 300 mg 4 times a day for 10 days. Follow-up with her primary medical doctor no improvement within 2 or 3 days. Prescriptions: Clindamycin HCl 1 cap PO QID #40 capsule
[2018-02-24] MEDS ORDERED: Adacel Vial IM ONE ×2 (23:10→23:18)
[2018-02-24] MEDS ORDERED: CLEOCIN 150 MG CAPSULE ONE (23:14)
[2018-02-24] MEDS ORDERED: ZOFRAN ODT 4 MG PO ONE (23:47)
[2018-02-24] MEDS ORDERED: ZOFRAN ODT 4 MG ONE (23:48)
[2018-02-24 23:56] VITALS: BP 149/73; PULSE 68; O2SAT 99
== END 2018-02-25 | disposition home or self-care (01) ==
LOC: ED 22:32
DX: L03.116 Cellulitis of left lower limb (principal); W22.8XXA Striking against or struck by other objects, initial encounter; Z79.899 Other long term (current) drug therapy
CPT/HCPCS: 90471; 90715; 99283; Q0162; A9270-GY

== ENCOUNTER 2018-07-04 22:05 | Emergency (ER) | payer OTHER ==
[2018-07-04 22:25] VITALS: O2SAT 97
[2018-07-04] MEDS ORDERED: Zofran 4 MG/2 ML VIAL IV ONE (22:42)
[2018-07-04] MEDS ORDERED: MILK OF MAGNESIA 30 ML PO ONE (22:42)
[2018-07-04] MEDS ORDERED: Sodium Chloride 0.9% 1000 ML 1,000 ML IV SCH (22:45)
[2018-07-04] MEDS ORDERED: Zofran 4 MG/2 ML VIAL ONE (22:50)
[2018-07-04] MEDS ORDERED: MILK OF MAGNESIA 30 ML ONE (22:51)
[2018-07-04] MEDS ORDERED: Sodium Chloride 0.9% 1000 ML 1,000 ML ONE (22:51)
--- NOTE | 2018-07-04 22:53 | ERPHSYRPT ---
- History of Present Illness Time Seen by Provider: 07/04/18 22:30 Source: patient Exam Limitations: clinical condition Patient Subjective Stated Complaint: pt is alert and oriented. pt is ambulatory with a steady gait. pt comes with c/o of back and right knee pain after a fall. pt states she slipped on the ice getting into her car. pt states she landed on her bottom in the gravel, pt denies hitting her head or loss of consciousness. pt states that she also believes she's gotten food poisoning vbecuase she began having diarrhea and vomiting at 1999. pt denies abd pain. Triage Nursing Assessment: see above Physician History: PATIENT WITH A HISTORY OF TYPE 2 DIABETES, SLIPPED AND FELL ONTO BACK AND INJURED HER RIGHT KNEE. DENIES HEAD OR NECK INJURY. DENIES RADIATION OF BACK PAIN INTO BUTTOCKS OR HIPS, DENIES KNEE DEFORMITY OR SWELLING. PATIENT ALSO COMPLAINS OF EMESIS AND WATERY DIARRHEA. DENIES ABDOMINAL PAIN, FEVER OR URINARY SYMPTOMS. Occurred: this afternoon Reason for Fall: slipped Injuries/Pain Location: back, lower Loss of Consciousness: no loss of consciousness Quality: throbbing Severity of Pain-Max: moderate Severity of Pain-Current: moderate Associated Symptoms (Fall): nausea, other (EMESIS AND DIARRHEA) Allergies/Adverse Reactions: shellfish derived Allergy (Intermediate, Verified 02/24/18 22:55) Swelling alcohol Allergy (Verified 02/24/18 22:55) anaphylaxis oxycodone HCl [From Percodan] Allergy (Verified 02/24/18 22:55) oxycodone terephthalate [From Percodan] Allergy (Verified 02/24/18 22:55) penicillin G Allergy (Verified 02/24/18 22:55) Penicillins Allergy (Verified 02/24/18 22:55) venom-honey bee [bee venom (honey bee)] Allergy (Verified 02/24/18 22:55) COCONUT Allergy (Uncoded 02/24/18 22:55) LEMON Allergy (Uncoded 02/24/18 22:55) PERIGORIC Allergy (Uncoded 02/24/18 22:55) Home Medications: Insulin Detemir [Levemir] 10 unit SQ DAILY 12/07/16 [History] Diclofenac Sodium 75 mg PO BID 09/01/17 [History] Epinephrine [Epipen] 0.3 mg IM CLARIFY PRN 09/01/17 [History] Gabapentin 300 mg PO TID 09/01/17 [History] Indomethacin 50 mg PO TID 09/01/17 [History] Melatonin 4 mg PO HS PRN 09/01/17 [History] Metformin HCl 500 mg [Glucophage 500 MG] 750 mg PO BID 09/01/17 [History] Phentermine HCl 37.5 mg PO DAILY 09/01/17 [History] SUMAtriptan succinate [Imitrex 50 mg] 50 mg PO Q6HPRN PRN 09/01/17 [History] Hx Tetanus, Diphtheria Vaccination/Date Given: Yes Hx Influenza Vaccination/Date Given: No Hx Pneumococcal Vaccination/Date Given: No Immunizations Up to Date: Yes - Review of Systems Constitutional: No Fever, No Chills Eyes: No Symptoms Ears, Nose, & Throat: No Symptoms Respiratory: No Cough, No Dyspnea Abdominal/Gastrointestinal: Nausea, Vomiting, Diarrhea Genitourinary Symptoms: No Symptoms Musculoskeletal: Back Pain, Injury, Joint Pain - Past Medical History Pertinent Past Medical History: Yes Neurological History: Migraines ENT History: No Pertinent History Cardiac History: No Pertinent History Respiratory History: No Pertinent History Endocrine Medical History: Diabetes Type II Musculoskeletal History: Other GI Medical History: No Pertinent History History: No Pertinent History Psycho-Social History: No Pertinent History Female Reproductive Disorders: No Pertinent History Other Medical History: PYMIA-BLOOD INFECTION - Past Surgical History Past Surgical History: Yes Neuro Surgical History: No Pertinent History Cardiac: No Pertinent History Respiratory: No Pertinent History Gastrointestinal: No Pertinent History Genitourinary: No Pertinent History Musculoskeletal: Other Female Surgical History: No Pertinent History Other Surgical History: arthroscopic knee surgery on left knee in 2001, right knee surgery - Social History Smoking Status: Never smoker Exposure to second hand smoke: Yes Drug Use: none Patient Lives Alone: No Significant Family History: no pertinent family hx - Female History Hx Now: No - Nursing Vital Signs Nursing Vital Signs: Initial Vital Signs Temperature 98.8 F 07/04/18 22:18 Pulse Rate 83 07/04/18 22:18 Respiratory Rate 16 07/04/18 22:18 Blood Pressure 183/86 07/04/18 22:18 O2 Sat by Pulse Oximetry 97 07/04/18 22:18 Pain Scale Pain Intensity [] 8 Pain Intensity [] 8 Pain Intensity 8 - Constance Coma Score Best Eye Response ([place]): (4) open spontaneously Best Verbal Response ([place]): (5) oriented Best Motor Response ([place]): (6) obeys commands Constance Total: 15 - Physical Exam General Appearance: no apparent distress, alert Head Injury: no evidence of injury Eye Exam: PERRL/EOMI ENT Exam: airway nml Neck Exam: normal inspection, No tenderness Respiratory/Chest Exam: normal breath sounds, No chest tenderness, No respiratory distress Cardiovascular Exam: normal heart sounds, regular rate/rhythm Gastrointestinal Exam: soft, No tenderness, No distention, No guarding, No ecchymosis Back Exam: normal inspection, decreased range of motion, point tenderness ( THERE IS PARASPINAL LUMBAR TENDERNESS L-3 TO L-5), No vertebral tenderness Extremity Exam: normal inspection, normal range of motion, pelvis stable, tenderness (RIGHT KNEE, MEDIAL FEMORAL CONDYLE TENDERNESS, PATELLA MIDLINE AND MOBILE, MINIMAL JOINT LAXITY UPON VARUS/VALGUS STRESS), No deformities Peripheral Pulses: carotid (R): 2+, carotid (L): 2+, femoral (R): 2+, femoral (L ): 2+, dorsalis-pedis (R): 2+, dorsalis-pedis (L): 2+ Neurologic Exam: alert, oriented x 3, cooperative, sensation nml, No motor deficits Skin Exam: normal color, warm, dry SpO2 Interpretation: normal SpO2: 97 - Radiology Exams Right Knee X-ray Interpretation: Interpreted by me, Negative, No Fracture (NO EVIDENCE OF FRACTURE) L-Spine X-ray Interpretation: Interpreted by me, Negative, No Fracture, No Subluxation Ordered Tests: Active Orders 24 hr Category Date Time Status KNEE (3 VIEWS) Stat Exams 07/04/18 22:44 Taken LUMBAR COMPLETE (MIN 4 VIEWS) Stat Exams 07/04/18 22:45 Taken BMP Stat Lab 07/04/18 22:49 Completed CBC W DIFF Stat Lab 07/04/18 22:49 Completed CULTURE,URINE Stat Lab 07/04/18 23:03 Received UA W/RFX UR CULTURE Stat Lab 07/04/18 23:03 Completed Medication Summary Generic Name Dose Route Start Last Admin Trade Name Freq PRN Reason Stop Dose Admin Sodium Chloride 1,000 mls @ 500 mls/hr 07/04/18 22:45 07/04/18 22:59 Sodium Chloride 0.9% 1000 Ml IV 08/03/18 22:44 500 mls/hr .Q2H APURVA Administration Discontinued Medications Generic Name Dose Route Start Last Admin Trade Name Andreina PRN Reason Stop Dose Admin Fentanyl Citrate 100 mcg 07/04/18 22:55 07/04/18 23:26 Sublimaze 100 Mcg/2 Ml IV 07/04/18 22:56 100 mcg STAT ONE Administration Fentanyl Citrate Confirm 07/04/18 23:09 Sublimaze 100 Mcg/2 Ml Administered 07/04/18 23:10 Dose 100 mcg .ROUTE .STK-MED ONE Ketorolac Tromethamine 30 mg 07/05/18 01:03 Toradol 30 Mg Injection IV 07/05/18 01:04 STAT ONE Magnesium Hydroxide 15 ml 07/04/18 22:42 07/04/18 22:58 Milk Of Magnesia 30 Ml PO 07/04/18 22:43 15 ml STAT ONE Administration Magnesium Hydroxide Confirm 07/04/18 22:51 Milk Of Magnesia 30 Ml Administered 07/04/18 22:52 Dose 30 ml .ROUTE .STK-MED ONE Ondansetron HCl 4 mg 07/04/18 22:42 07/04/18 22:59 Zofran 4 Mg/2 Ml Vial IV 07/04/18 22:43 4 mg STAT ONE Administration Ondansetron HCl Confirm 07/04/18 22:50 Zofran 4 Mg/2 Ml Vial Administered 07/04/18 22:51 Dose 4 mg .ROUTE .STK-MED ONE Trimethoprim/Sulfamethoxazole 1 tab 07/05/18 01:03 Bactrim Ds Tablet PO 07/05/18 01:04 STAT STA Lab/Rad Data: Laboratory Result Diagrams 07/04/18 22:49 07/04/18 22:49 Laboratory Results 07/04/18 07/04/18 07/04/18 Range/Units 23:03 22:49 22:49 WBC 9.9 (4.0-10.5) K/mm3 RBC 4.46 (4.1-5.4) M/mm3 Hgb 13.3 (12.0-16.0) gm/dl Hct 41.4 (35-47) % MCV 92.8 (78-100) fl MCH 29.8 (26-32) pg MCHC 32.1 (32-36) g/dl RDW 13.1 (11.5-14.0) % Plt Count 332 (150-450) K/mm3 MPV 10.9 H (6-9.5) fl Gran % 65.5 (36.0-66.0) % Eos # (Auto) 0.29 (0-0.5) Absolute Lymphs (auto) 2.37 (1.0-4.6) Absolute Monos (auto) 0.70 (0.0-1.3) Lymphocytes % 24.0 (24.0-44.0) % Monocytes % 7.1 (0.0-12.0) % Eosinophils % 2.9 (0.00-5.0) % Basophils % 0.5 (0.0-0.4) % Absolute Granulocytes 6.45 (1.4-6.9) Basophils # 0.05 (0-0.4) Sodium 137 (137-145) mmol/L Potassium 4.1 (3.5-5.1) mmol/L Chloride 100 (98-107) mmol/L Carbon Dioxide 29 (22-30) mmol/L Anion Gap 13.2 (5-15) MEQ/L BUN 14 (7-17) mg/dL Creatinine 0.72 (0.52-1.04) mg/dL Estimated GFR > 60.0 ML/MIN Glucose 309 H (74-106) mg/dL Calcium 9.2 (8.4-10.2) mg/dL Urine Color YELLOW (YELLOW) Urine Appearance SLIGHTLY CLOUDY (CLEAR) Urine pH 5.0 (5-6) Ur Specific [place] 1.017 (1.005-1.025) Urine Protein NEGATIVE (Negative) Urine Ketones TRACE (NEGATIVE) Urine Blood NEGATIVE (0-5) Reese/ul Urine Nitrite NEGATIVE (NEGATIVE) Urine Bilirubin NEGATIVE (NEGATIVE) Urine Urobilinogen 2 (0-1) mg/dL Ur Leukocyte Esterase TRACE (NEGATIVE) Urine WBC (Auto) 11-15 (0-5) /HPF Urine RBC (Auto) 0-2 (0-2) /HPF U Hyaline Cast (Auto) 0-2 (0-2) /LPF U Epithel Cells (Auto) RARE (FEW) /HPF Urine Bacteria (Auto) NONE (NEGATIVE) /HPF Unidentified Crystals 2-5 (NEGATIVE) /HPF Other Casts (Auto) 5-10 (NEGATIVE) /LPF Urine Mucus (Auto) SLIGHT (NEGATIVE) /HPF Urine Culture Reflexed YES (NO) Urine Glucose >=500 (NEGATIVE) mg/dL - Departure Time of Disposition: 01:15 Departure Disposition: Home Clinical Impression: Acute lumbar myofascial strain, RIGHT KNEE CONTUSION, URINARY TRACT INFECTION Condition: Stable Critical Care Time: No Referrals: LUCINDA PELLETIER [Primary Care Provider] - Additional Instructions: AMBULATE USING CRUTCHES AT HOME, NONWEIGHT BEARING RIGHT KNEE FOR 5 DAYS. APPLY ICE OVER KNEE SWELLING EVERY 4 HOURS, 30 MINUTES FOR 48 HOURS. TORADOL 10MG EVERY 6 HOURS NEEDED FOR PAIN DISCOMFORT. BACTRIM DS TWICE DAILY FOR 10 DAYS FOR TREATMENT FOR URINARY TRACT INFECTION. CONSULT YOUR PRIMARY CARE PROVIDER FOR EVALUATION AND PHYSICAL THERAPY. Prescriptions: Ketorolac Tromethamine [Toradol] 10 mg PO Q6H PRN PRN #20 tablet PRN Reason: Pain Smz/Tmp Ds Tablet [Bactrim Ds Tablet] 1 udtab PO BID #20 tablet
[2018-07-04 22:55] LABS: BASOPHIL % 0.5 % (0.0-0.4); Basophil (Absolute #) 0.05 (0-0.4); Eosinophil % 2.9 % (0.00-5.0); Eosinophil (Absolute #) 0.29 (0-0.5); Granulocyte Absolute (ANC) 6.45 (1.4-6.9); Granulocytes % 65.5 % (36.0-66.0); Hematocrit 41.4 % (35-47); Hemoglobin 13.3 gm/dl (12.0-16.0); Lymphocyte (Absolute #) 2.37 (1.0-4.6); Mean Cell Volume 92.8 fl (78-100); Mean Corpuscular Hemoglobin 29.8 pg (26-32); Mean Corpuscular Hgb Concent. 32.1 g/dl (32-36); Mean Platelet Volume 10.9 fl (6-9.5); Monocytes % 7.1 % (0.0-12.0); Platelet Count 332 K/mm3 (150-450); Red Blood Count 4.46 M/mm3 (4.1-5.4); Red Cell Distribution Width 13.1 % (11.5-14.0); White Blood Count 9.9 K/mm3 (4.0-10.5)
[2018-07-04] MEDS ORDERED: SUBLIMAZE 100 MCG/2 ML IV ONE (22:55)
[2018-07-04] MEDS ORDERED: SUBLIMAZE 100 MCG/2 ML ONE (23:09)
[2018-07-04 23:11] LABS: Appearance SLIGHTLY CLOUDY (CLEAR); Bilirubin NEGATIVE (NEGATIVE); Blood NEGATIVE Ery/ul (0-5); Epithelial Cells RARE /HPF (FEW); Glucose >=500 mg/dL (NEGATIVE); Hyaline Casts 0-2 /LPF (0-2); Ketones TRACE (NEGATIVE); Leukocyte Esterase TRACE (NEGATIVE); Mucus SLIGHT /HPF (NEGATIVE); Nitrite NEGATIVE (NEGATIVE); Protein,Urine Dip NEGATIVE (Negative); RBC 0-2 /HPF (0-2); Specific Gravity 1.017 (1.005-1.025); Urobilinogen 2 mg/dL (0-1)
[2018-07-04 23:12] LABS: ANION GAP 13.2 MEQ/L (5-15); BLOOD UREA NITROGEN 14 mg/dL (7-17); CHLORIDE 100 mmol/L (98-107); Calcium 9.2 mg/dL (8.4-10.2); Carbon Dioxide 29 mmol/L (22-30); Creatinine 1 0.72 mg/dL (0.52-1.04); Glucose 309 mg/dL (74-106); Potassium 4.1 mmol/L (3.5-5.1); SODIUM 137 mmol/L (137-145)
[2018-07-04 23:30] VITALS: BP 159/90; PULSE 68
[2018-07-05] MEDS ORDERED: BACTRIM DS TABLET PO STA (01:03)
[2018-07-05] MEDS ORDERED: TORAdol 30 mg Injection IV ONE (01:03)
[2018-07-05] MEDS ORDERED: TORAdol 30 mg Injection ONE (01:06)
[2018-07-05] MEDS ORDERED: BACTRIM DS TABLET PO ONE (01:07)
--- NOTE | 2018-07-05 08:50 | XRAY ---
Indication: Pain following fall. Comparison: None 3 views of the left knee demonstrates minimal medial joint space narrowing/spurring and posterior fabella. No other bony, articular, or soft tissue abnormalities.
--- NOTE | 2018-07-05 08:50 | XRAY ---
Indication: Right sided pain following fall. Comparison: CT lumbar spine February 20, 2013. 5 views of the lumbar spine again demonstrates minimal L5-S1 disc space narrowing, minimal levoscoliosis centered at L2, mild bilateral L4-S1 degenerative facet arthropathy, and pelvic suture material. No new/acute bony, articular, or soft tissue abnormalities.
== END 2018-07-05 01:21 | disposition home or self-care (01) ==
LOC: ED 22:05
DX: S39.012A Strain of muscle, fascia and tendon of lower back, initial encounter (principal); S80.01XA Contusion of right knee, initial encounter; N39.0 Urinary tract infection, site not specified; E11.9 Type 2 diabetes mellitus without complications; W00.0XXA Fall on same level due to ice and snow, initial encounter; M54.5 Low back pain; Z79.899 Other long term (current) drug therapy; Z79.4 Long term (current) use of insulin; Z79.84 Long term (current) use of oral hypoglycemic drugs; R11.2 Nausea with vomiting, unspecified
CPT/HCPCS: 36000; 36415; 72110; 73562; 80048; 81001; 85025; 87086; 96360; 96361; 96374; 96375; 99284; J1885; J2405; J3010; A9270-GY

== ENCOUNTER 2019-04-29 05:05 | Emergency (ER) | payer SELFPAY ==
--- NOTE | 2019-04-29 05:45 | ERPHSYRPT ---
- History of Present Illness Time Seen by Provider: 04/29/19 05:30 Source: patient Exam Limitations: no limitations Patient Subjective Stated Complaint: pt c/o headache, nausea, temperature and dizziness since about 2230 last night. Pt c/o sore throat. Triage Nursing Assessment: pt wheeled to rm 5 by RN, pt alert and oriented x3, cooperative. Pt c/o migraine, nauseous, sore throat and temp of 102 around 2230. Lungs clear, heart tones reg, abd large, soft with active bs x4 quad, nontender. Physician History: 53 y/o white female, who has a h/o migraine headaches, presents with recurrent migraine. migraine is typical for her. very nauseated. pt took her imitrex but did not help much at all. pt drove herself but her ride is coming at 0630. sx began yesterday but worsening. Timing/Duration: yesterday Quality: aching, throbbing Head Pain Location: global Severity of Pain-Max: moderate Severity of Pain-Current: moderate Recent Head Trauma: occasional headaches Modifying Factors: Improves With: exposure to light, noise Associated Symptoms: nausea/vomiting, sensitive to light Previous symptoms: same symptoms as today (uncommon) Allergies/Adverse Reactions: shellfish derived Allergy (Intermediate, Verified 02/24/18 22:55) Swelling acetaminophen [From Percocet] Allergy (Verified 04/29/19 05:22) Hives alcohol Allergy (Verified 02/24/18 22:55) anaphylaxis oxycodone [From Percocet] Allergy (Verified 04/29/19 05:22) Hives oxycodone HCl [From Percodan] Allergy (Verified 02/24/18 22:55) oxycodone terephthalate [From Percodan] Allergy (Verified 02/24/18 22:55) penicillin G Allergy (Verified 02/24/18 22:55) Penicillins Allergy (Verified 02/24/18 22:55) venom-honey bee [bee venom (honey bee)] Allergy (Verified 02/24/18 22:55) COCONUT Allergy (Uncoded 02/24/18 22:55) LEMON Allergy (Uncoded 02/24/18 22:55) PERIGORIC Allergy (Uncoded 02/24/18 22:55) Home Medications: Insulin Detemir [Levemir] 15 unit SQ BID 12/07/16 [History] Epinephrine [Epipen] 0.3 mg IM CLARIFY PRN 09/01/17 [History] SUMAtriptan succinate [Imitrex 50 mg] 50 mg PO Q6HPRN PRN 09/01/17 [History] Hx Tetanus, Diphtheria Vaccination/Date Given: Yes Hx Influenza Vaccination/Date Given: No Hx Pneumococcal Vaccination/Date Given: No Immunizations Up to Date: Yes - Review of Systems Constitutional: No Symptoms Eyes: No Symptoms Ears, Nose, & Throat: No Symptoms Respiratory: No Symptoms Cardiac: No Symptoms Abdominal/Gastrointestinal: No Symptoms Genitourinary Symptoms: No Symptoms Musculoskeletal: No Symptoms Skin: No Symptoms Neurological: Headache Psychological: No Symptoms Endocrine: No Symptoms Hematologic/Lymphatic: No Symptoms Immunological/Allergic: No Symptoms All Other Systems: Reviewed and Negative - Past Medical History Pertinent Past Medical History: Yes Neurological History: Migraines ENT History: No Pertinent History Cardiac History: No Pertinent History Respiratory History: No Pertinent History Endocrine Medical History: Diabetes Type II Musculoskeletal History: Other GI Medical History: No Pertinent History History: No Pertinent History Psycho-Social History: No Pertinent History Female Reproductive Disorders: No Pertinent History Other Medical History: PYMIA-BLOOD INFECTION - Past Surgical History Past Surgical History: Yes Neuro Surgical History: No Pertinent History Cardiac: No Pertinent History Respiratory: No Pertinent History Gastrointestinal: No Pertinent History Genitourinary: No Pertinent History Musculoskeletal: Other Female Surgical History: No Pertinent History Other Surgical History: arthroscopic knee surgery on left knee in 2001, right knee surgery - Social History Smoking Status: Former smoker Exposure to second hand smoke: Yes Drug Use: none Patient Lives Alone: No Significant Family History: no pertinent family hx - Female History Hx Now: No - Nursing Vital Signs Nursing Vital Signs: Initial Vital Signs Temperature 99.5 F 04/29/19 05:12 Pulse Rate 78 04/29/19 05:12 Respiratory Rate 17 04/29/19 05:12 Blood Pressure 176/95 04/29/19 05:12 O2 Sat by Pulse Oximetry 96 04/29/19 05:12 Pain Scale Pain Intensity 8 - Physical Exam General Appearance: moderate distress, alert, anxiety Eye Exam: PERRL/EOMI, eyes nml inspection Ears, Nose, Throat Exam: normal ENT inspection, moist mucous membranes Neck Exam: normal inspection, non-tender, supple, full range of motion Respiratory Exam: normal breath sounds, lungs clear, airway intact, No chest tenderness, No respiratory distress Cardiovascular Exam: regular rate/rhythm, normal heart sounds, normal peripheral pulses Gastrointestinal/Abdominal Exam: No tenderness Back Exam: normal inspection, normal range of motion, No CVA tenderness, No vertebral tenderness Extremity Exam: normal inspection, normal range of motion, pelvis stable Mental Status Exam: alert, oriented x 3, 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, normal speech, PERRL Coordination/Gait Exam: normal finger to nose, normal gait, normal cerebellar function Skin Exam: normal color, warm, dry Lymphatic Exam: No adenopathy SpO2 Interpretation: normal SpO2: 96 O2 Delivery: Room Air - Course Nursing assessment & vital signs reviewed: Yes - Progress Progress: improved, re-examined Air Movement: good Blood Culture(s) Obtained: No Antibiotics given: No Counseled pt/family regarding: diagnosis, need for follow-up - Departure Departure Disposition: Home Clinical Impression: Migraine Condition: Stable Critical Care Time: No Referrals: LUCINDA PELLETIER [Primary Care Provider] - Additional Instructions: follow up with primary doctor for persistent or recurrent symptoms
[2019-04-29] MEDS ORDERED: Phenergan 25 MG INJ IM ONE (05:47)
[2019-04-29] MEDS ORDERED: Hydromorphone 1 mg/ml Ampule IM ONE (05:47)
[2019-04-29] MEDS ORDERED: Hydromorphone 1 mg/ml Ampule ONE (05:51)
[2019-04-29] MEDS ORDERED: Phenergan 25 MG INJ ONE (05:51)
[2019-04-29 06:56] VITALS: BP 153/77
[2019-04-29 08:01] VITALS: PULSE 74; O2SAT 96
== END 2019-04-29 07:40 | disposition home or self-care (01) ==
LOC: ED 05:05
DX: G43.909 Migraine, unspecified, not intractable, without status migrainosus (principal); R50.9 Fever, unspecified; R11.2 Nausea with vomiting, unspecified; Z79.899 Other long term (current) drug therapy; E11.9 Type 2 diabetes mellitus without complications
CPT/HCPCS: 36000; 96372; 99284; J1170; J2550

== ENCOUNTER 2019-11-05 17:58 | Emergency (ER) | payer OTHER ==
[2019-11-05] MEDS ORDERED: BENADRYL 50 MG/ML IV ONE (18:00)
[2019-11-05] MEDS ORDERED: Pepcid 20 MG VIAL IV ONE ×2 (18:00→18:05)
[2019-11-05] MEDS ORDERED: Sodium Chloride 0.9% 1000 ML 1,000 ML IV STA (18:00)
[2019-11-05] MEDS ORDERED: Sodium Chloride 0.9% 1000 ML 1,000 ML ONE (18:02)
[2019-11-05] MEDS ORDERED: BENADRYL 50 MG/ML ONE (18:02)
[2019-11-05] MEDS ORDERED: Ativan 2 MG/1 ML VIAL IV ONE (18:08)
[2019-11-05] MEDS ORDERED: Ativan 2 MG/1 ML VIAL ONE (18:09)
[2019-11-05 18:12] LABS: Absolute Neutrophil Ct (ANC) 8.13 (1.4-6.9); BASOPHIL % 0.3 % (0.0-0.4); Basophil (Absolute #) 0.03 (0-0.4); Eosinophil % 2.1 % (0.00-5.0); Eosinophil (Absolute #) 0.25 (0-0.5); Hematocrit 43.9 % (35-47); Hemoglobin 14.5 gm/dl (12.0-16.0); Lymphocyte (Absolute #) 2.74 (1.0-4.6); Lymphocytes % 22.9 % (24.0-44.0); Mean Cell Volume 90.9 fl (78-100); Mean Platelet Volume 11.1 fl (7.5-11.0); Monocyte (Absolute #) 0.81 (0.0-1.3); Monocytes % 6.8 % (0.0-12.0); Neutrophil % 67.9 % (36.0-66.0); Platelet Count 340 K/mm3 (150-450); Red Blood Count 4.83 M/mm3 (4.1-5.4); Red Cell Distribution Width 13.5 % (11.5-14.0)
[2019-11-05] MEDS ORDERED: solu-MEDROL 125 MG IV ONE (18:16)
[2019-11-05] MEDS ORDERED: solu-MEDROL 125 MG ONE (18:22)
[2019-11-05 18:23] LABS: ANION GAP 15.6 MEQ/L (5-15); BLOOD UREA NITROGEN 17 mg/dL (7-17); CHLORIDE 100 mmol/L (98-107); Calcium 9.5 mg/dL (8.4-10.2); Carbon Dioxide 26 mmol/L (22-30); Creatinine 1 0.82 mg/dL (0.52-1.04); Glucose 331 mg/dL (74-106); Potassium 3.8 mmol/L (3.5-5.1); SODIUM 138 mmol/L (137-145)
--- NOTE | 2019-11-05 18:26 | ERPHSYRPT ---
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 pt states she now feels weird, states she is shaking and feels slightly disoriented. Triage Nursing Assessment: pt is aox3, pt appears to be shaking, afebrile, resps easy and non labored, pt lung sounds are clear throughout, cap refill < 3 seconds, radial pulses strong and equal, pt skin pink warm and dry. redness noted to the right lower extremity, mid calf to ankle, skin is intact, pedal pulses strong and equal. 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 pt states she now feels weird, states she is shaking and feels slightly disoriented. Timing/Duration: today Severity: moderate Modifying Factors: Improves With: other (epipen) Associated Symptoms: denies symptoms Allergies/Adverse Reactions: shellfish derived Allergy (Intermediate, Verified 11/05/19 18:19) Swelling acetaminophen [From Percocet] Allergy (Verified 11/05/19 18:19) Hives alcohol Allergy (Verified 11/05/19 18:19) anaphylaxis oxycodone [From Percocet] Allergy (Verified 11/05/19 18:19) Hives oxycodone HCl [From Percodan] Allergy (Verified 11/05/19 18:19) oxycodone terephthalate [From Percodan] Allergy (Verified 11/05/19 18:19) penicillin G Allergy (Verified 11/05/19 18:19) Penicillins Allergy (Verified 11/05/19 18:19) venom-honey bee [bee venom (honey bee)] Allergy (Verified 11/05/19 18:19) COCONUT Allergy (Uncoded 11/05/19 18:19) LEMON Allergy (Uncoded 11/05/19 18:19) PERIGORIC Allergy (Uncoded 11/05/19 18:19) Home Medications: Insulin Detemir [Levemir] 15 unit SQ BID 12/07/16 [History] Epinephrine [Epipen] 0.3 mg IM CLARIFY PRN 09/01/17 [History] SUMAtriptan succinate [Imitrex 50 mg] 50 mg PO Q6HPRN PRN 09/01/17 [History] Hx Tetanus, Diphtheria Vaccination/Date Given: Yes Hx Influenza Vaccination/Date Given: Yes Hx Pneumococcal Vaccination/Date Given: Yes Immunizations Up to Date: No Travel Risk - International Travel Have you traveled outside of the country in past 3 weeks: No Have you or anyone close to you been diagnosed with or: No Do your reside in a community with a known COVID-19 case?: Yes If Yes where:: [place] - Coronavirus Screening Has patient experienced Coronavirus symptoms: No - Review of Systems Constitutional: Malaise Eyes: No Symptoms Ears, Nose, & Throat: No Symptoms Respiratory: No Symptoms Cardiac: Palpitations Abdominal/Gastrointestinal: No Symptoms Genitourinary Symptoms: No Symptoms Musculoskeletal: No Symptoms Skin: No Symptoms Neurological: No Symptoms Psychological: No Symptoms Endocrine: No Symptoms - Past Medical History Pertinent Past Medical History: Yes Neurological History: Migraines ENT History: No Pertinent History Cardiac History: No Pertinent History Respiratory History: No Pertinent History Endocrine Medical History: Diabetes Type II Musculoskeletal History: Other GI Medical History: No Pertinent History History: No Pertinent History Psycho-Social History: No Pertinent History Female Reproductive Disorders: No Pertinent History Other Medical History: PYMIA-BLOOD INFECTION - Past Surgical History Past Surgical History: Yes Neuro Surgical History: No Pertinent History Cardiac: No Pertinent History Respiratory: No Pertinent History Gastrointestinal: No Pertinent History Genitourinary: No Pertinent History Musculoskeletal: Other Female Surgical History: No Pertinent History Other Surgical History: arthroscopic knee surgery on left knee in 2001, right knee surgery - Social History Smoking Status: Former smoker Exposure to second hand smoke: Yes Drug Use: none Patient Lives Alone: No Significant Family History: no pertinent family hx - Female History Hx Now: No - Nursing Vital Signs Nursing Vital Signs: Initial Vital Signs Temperature 98 F 11/05/19 17:59 Pulse Rate 103 H 11/05/19 17:59 Respiratory Rate 20 11/05/19 17:59 Blood Pressure 212/102 11/05/19 17:59 O2 Sat by Pulse Oximetry 98 11/05/19 17:59 Pain Scale Pain Intensity 5 - Physical Exam General Appearance: mild distress Eye Exam: PERRL/EOMI Ears, Nose, Throat Exam: normal ENT inspection Neck Exam: normal inspection Respiratory Exam: wheezing Cardiovascular Exam: tachycardia Gastrointestinal/Abdomen Exam: soft Pelvic Exam: not done Back Exam: normal inspection Extremity Exam: normal inspection Neurologic Exam: alert, oriented x 3, cooperative Skin Exam: normal color SpO2: 98 - Course Nursing assessment & vital signs reviewed: Yes Ordered Tests: Active Orders 24 hr Category Date Time Status Oxygen-ED Only Nasal Cannula 2 lpm Care 11/05/19 18:00 Active BMP Stat Lab 11/05/19 18:08 Received CBC W DIFF Stat Lab 11/05/19 18:08 Completed Medication Summary Generic Name Dose Route Start Last Admin Trade Name Freq PRN Reason Stop Dose Admin Sodium Chloride 1,000 mls @ 999 mls/hr 11/05/19 18:00 Sodium Chloride 0.9% 1000 Ml IV 11/05/19 19:00 .Q1H1M STA Discontinued Medications Generic Name Dose Route Start Last Admin Trade Name Freq PRN Reason Stop Dose Admin Diphenhydramine HCl 50 mg 11/05/19 18:00 Benadryl 50 Mg/Ml IV 11/05/19 18:01 STAT ONE Diphenhydramine HCl Confirm 11/05/19 18:02 Benadryl 50 Mg/Ml Administered 11/05/19 18:03 Dose 50 mg .ROUTE .STK-MED ONE Famotidine 20 mg 11/05/19 18:00 Pepcid 20 Mg Vial IV 11/05/19 18:01 STAT ONE Famotidine Confirm 11/05/19 18:05 Pepcid 20 Mg Vial Administered 11/05/19 18:06 Dose 20 mg IV .STK-MED ONE Sodium Chloride Confirm 11/05/19 18:02 Sodium Chloride 0.9% 1000 Ml Administered 11/05/19 18:03 Dose 1,000 mls @ ud .ROUTE .STK-MED ONE Lorazepam 2 mg 11/05/19 18:08 Ativan 2 Mg/1 Ml Vial IV 11/05/19 18:09 STAT ONE Lorazepam Confirm 11/05/19 18:09 Ativan 2 Mg/1 Ml Vial Administered 11/05/19 18:10 Dose 2 mg .ROUTE .STK-MED ONE Methylprednisolone Sodium Succinate 125 mg 11/05/19 18:16 Solu-Medrol 125 Mg IV 11/05/19 18:17 STAT ONE Lab/Rad Data: Laboratory Result Diagrams 11/05/19 18:08 Laboratory Results 11/05/19 Range/Units 18:08 WBC 12.0 H (4.0-10.5) K/mm3 RBC 4.83 (4.1-5.4) M/mm3 Hgb 14.5 (12.0-16.0) gm/dl Hct 43.9 (35-47) % MCV 90.9 (78-100) fl MCH 30.0 (26-32) pg MCHC 33.0 (32-36) g/dl RDW 13.5 (11.5-14.0) % Plt Count 340 (150-450) K/mm3 MPV 11.1 H (7.5-11.0) fl Gran % 67.9 H (36.0-66.0) % Eos # (Auto) 0.25 (0-0.5) Absolute Lymphs (auto) 2.74 (1.0-4.6) Absolute Monos (auto) 0.81 (0.0-1.3) Lymphocytes % 22.9 L (24.0-44.0) % Monocytes % 6.8 (0.0-12.0) % Eosinophils % 2.1 (0.00-5.0) % Basophils % 0.3 (0.0-0.4) % Absolute Granulocytes 8.13 H (1.4-6.9) Basophils # 0.03 (0-0.4) - Progress Progress: improved Counseled pt/family regarding: diagnosis, need for follow-up - Departure Departure Disposition: Home Clinical Impression: Bee sting reaction Qualifiers: Encounter type: initial encounter Injury intent: accidental or unintentional Qualified Code(s): T63.441A - Toxic effect of venom of bees, accidental ( unintentional), initial encounter Condition: Stable Critical Care Time: Yes Critical Care Time(excluding separately billable procedures): Critical 30-74 mins Referrals: LUCINDA PELLETIER [Primary Care Provider] - Instructions: Insect Bites and Stings (DC), Anaphylaxis (DC) Additional Instructions: Discharge/Care Plan TIFFANIE ROBERTSON was seen on 11/05/19 in the Emergency Room. The patient was counseled regarding Diagnosis,Lab results, Imaging studies, need for follow up and when to return to the Emergency Room. Prescriptions given: Discharge Note I have spoken with the patient and/or caregivers. I have explained the patient' s condition, diagnosis and treatment plan based on the information available to me at this time. I have answered the patient's and/or caregiver's questions and addressed any concerns. The patient and/or caregivers have as good understanding of the patient's diagnosis, condition and treatment plan as can be expected at this point. The vital signs have been stable. The patient's condition is stable and appropriate for discharge from the emergency department. The patient will pursue further outpatient evaluation with the primary care physician or other designated or consulting physician as outlined in the discharge instructions. The patient and/or caregivers are agreeable to this plan of care and follow-up instructions have been explained in detail. The patient and/or caregivers have received these instruction. The patient/and or caregivers are aware that any significant change in condition or worsening of symptoms should prompt an immediate return to this or the closest emergency department or call 911. TIFFANIE ROBERTSON was seen on 11/05/19 n the Emergency Room. At that time you were treated for an emergent condition, during your visit Laboratory, Radiology and/or other procedures may have been ordered. It is very important that you follow-up with your Primary Care Physician LUCINDA PELLETIER within the next 24-48 hours to review your Emergency Room visit and the final results of testing that was ordered. Some test results such as Urine Cultures, Blood Cultures, and other cultures if ordered will not be finalized for 24-48 hours. If you do not have a Primary Care Provider please call the medical records department at [phone] to obtain a copy of your results or you may sign into our patient portal to obtain these results by visiting us @ [email or web address] and completing the following steps: 1. Click on the Patient Portal link 2. Click the Patient Self Enrollment Link to complete the enrollment form and entering your 3. Once the enrollment form is completed you will receive an email with a temporary ID and password at the email address you provided. 4. Next choose a user name and password. Your user name must be at least 4 characters long and your password must be at least 4 characters long. 5. Choose a security question from the list and provide your answer to the question. If you already have signed into the Health Portal you may access your Health Care Information 29/12 by the following steps: 1. Login to our website @ [email or web address] 2. Enter your original user name and password. FAQS The [facility] Health Portal is an online tool that contains your Lab Results, Radiology Reports, Visit History, Discharge Instructions and Health Summary Lab and Radiology Results will not be available for 72 hours on the portal. The Portal is a secure site, passwords are encryted and URLs are re-written so they cannot be copied and pasted. You and authorized family members are the only ones who can access your Portal. Also there is a timeout feature that protects your information if you leave the Portal page open. If you have technical difficulty please use the Contact Us link on the page this will allow you to submit any questions you have regarding the Portal or you may contact the Medical Record Department at [phone]. Prescriptions: Methylprednisolone Packet [Medrol Dosepack] 4 mg PO UD #30 packet Famotidine 20 mg [Pepcid 20 MG] 20 mg PO BID #60 tablet
[2019-11-05 18:38] VITALS: O2SAT 96
[2019-11-05 19:11] VITALS: BP 177/79; PULSE 80
== END 2019-11-05 19:25 | disposition home or self-care (01) ==
LOC: ED 17:58
DX: T63.441A Toxic effect of venom of bees, accidental (unintentional), initial encounter (principal)
CPT/HCPCS: 36000; 36415; 80048; 85025; 96374; 96375; 99284; 99291; J1200; J2060; J2930

== ENCOUNTER 2020-06-18 11:38 | Emergency (ER) | payer BC ==
--- NOTE | 2020-06-18 11:41 | ERPHSYRPT ---
- History of Present Illness Time Seen by Provider: 06/18/20 11:45 Source: patient Exam Limitations: no limitations Physician History: Patient is a 54-year-old female who presents to our ED for evaluation of chest pain and shortness of breath. Symptoms have been ongoing for approximately 1 week. Patient is also noticed swelling of her bilateral lower extremities. Speedy laughlin states the swelling started 2 days ago. She increased her daily dose of Lasix however this did not improve her swelling. Patient chest pain described as an ache that is localized to her left chest. No radiation. No associated nausea vomiting or diaphoresis. Symptoms are moderate in intensity. No specific worsening or improving factors. Patient voices no other complaints or concerns at this time. Timing/Duration: week(s) Severity: moderate Modifying Factors: Improves With: nothing Associated Symptoms: shortness of breath, No diaphoresis, No fever, No loss of appetite, No malaise, No syncope, No seizure, No weakness Allergies/Adverse Reactions: shellfish derived Allergy (Intermediate, Verified 06/18/20 11:53) Swelling acetaminophen [From Percocet] Allergy (Verified 06/18/20 11:53) Hives alcohol Allergy (Verified 06/18/20 11:53) anaphylaxis oxycodone [From Percocet] Allergy (Verified 06/18/20 11:53) Hives oxycodone HCl [From Percodan] Allergy (Verified 06/18/20 11:53) oxycodone terephthalate [From Percodan] Allergy (Verified 06/18/20 11:53) penicillin G Allergy (Verified 06/18/20 11:53) Penicillins Allergy (Verified 06/18/20 11:53) venom-honey bee [bee venom (honey bee)] Allergy (Verified 06/18/20 11:53) COCONUT Allergy (Uncoded 06/18/20 11:53) LEMON Allergy (Uncoded 06/18/20 11:53) PERIGORIC Allergy (Uncoded 06/18/20 11:53) Home Medications: Insulin Detemir [Levemir] 15 unit SQ BID 12/07/16 [History] Epinephrine [Epipen] 0.3 mg IM CLARIFY PRN 09/01/17 [History] Clindamycin HCl 300 mg PO DAILY 06/18/20 [History] Furosemide 20 mg [Lasix 20 mg] 20 mg PO DAILY 06/18/20 [History] Glimepiride 4 mg [Amaryl 4 mg] 4 mg PO DAILY 06/18/20 [History] Lisinopril 20 mg [Zestril 20 MG] 20 mg PO DAILY 06/18/20 [History] Potassium Chloride 10 Meq Tab* [Klor Con 10 MEQ] 10 meq PO DAILY 06/18/20 [History] Promethazine HCl 25 mg [Phenergan 25 mg] 25 mg PO DAILY 06/18/20 [History] Rizatriptan Benzoate [Rizatriptan] 10 mg PO DAILY 06/18/20 [History] Hx Tetanus, Diphtheria Vaccination/Date Given: Yes Hx Influenza Vaccination/Date Given: Yes Hx Pneumococcal Vaccination/Date Given: Yes - Review of Systems Constitutional: No Symptoms, No Fever, No Chills Eyes: No Symptoms Ears, Nose, & Throat: No Symptoms Respiratory: No Symptoms, No Cough, No Dyspnea Cardiac: No Symptoms, No Chest Pain, No Edema, No Syncope Abdominal/Gastrointestinal: No Symptoms, No Abdominal Pain, No Nausea, No Vomiting, No Diarrhea Genitourinary Symptoms: No Symptoms, No Dysuria Musculoskeletal: No Symptoms, No Back Pain, No Neck Pain Skin: No Symptoms, No Rash Neurological: No Symptoms, No Dizziness, No Focal Weakness, No Sensory Changes Psychological: No Symptoms Endocrine: No Symptoms Hematologic/Lymphatic: No Symptoms Immunological/Allergic: No Symptoms All Other Systems: Reviewed and Negative - Past Medical History Pertinent Past Medical History: Yes Neurological History: Migraines ENT History: No Pertinent History Cardiac History: No Pertinent History Respiratory History: No Pertinent History Endocrine Medical History: Diabetes Type II Musculoskeletal History: Other GI Medical History: No Pertinent History History: No Pertinent History Psycho-Social History: No Pertinent History Female Reproductive Disorders: No Pertinent History Other Medical History: PYMIA-BLOOD INFECTION - Past Surgical History Past Surgical History: Yes Neuro Surgical History: No Pertinent History Cardiac: No Pertinent History Respiratory: No Pertinent History Gastrointestinal: No Pertinent History Genitourinary: No Pertinent History Musculoskeletal: Other Female Surgical History: No Pertinent History Other Surgical History: arthroscopic knee surgery on left knee in 2001, right knee surgery - Social History Smoking Status: Former smoker Exposure to second hand smoke: Yes Drug Use: none Patient Lives Alone: No Significant Family History: no pertinent family hx - Nursing Vital Signs Nursing Vital Signs: Initial Vital Signs Temperature 98.1 F 06/18/20 11:38 Pulse Rate 88 06/18/20 11:38 Respiratory Rate 24 06/18/20 11:38 Blood Pressure 176/74 06/18/20 11:38 O2 Sat by Pulse Oximetry 100 06/18/20 11:38 Pain Scale Pain Intensity 4 - Physical Exam General Appearance: no apparent distress, alert Eye Exam: PERRL/EOMI, eyes nml inspection Ears, Nose, Throat Exam: normal ENT inspection, TMs normal, pharynx normal, moist mucous membranes Neck Exam: normal inspection, non-tender, supple, full range of motion Respiratory Exam: normal breath sounds, lungs clear, No respiratory distress Cardiovascular Exam: regular rate/rhythm, normal heart sounds, normal peripheral pulses Gastrointestinal/Abdomen Exam: soft, normal bowel sounds, No tenderness, No mass Back Exam: normal inspection, normal range of motion, No CVA tenderness, No vertebral tenderness Extremity Exam: normal inspection, normal range of motion, pelvis stable, other (Bilateral lower extremity 2+ pitting edema. Homans sign negative bilaterally.) Neurologic Exam: alert, oriented x 3, cooperative, normal mood/affect, nml cerebellar function, nml station & gait, sensation nml, No motor deficits Skin Exam: normal color, warm, dry, No rash Lymphatic Exam: No adenopathy SpO2 Interpretation: normal SpO2: 100 O2 Delivery: Room Air - Course Nursing assessment & vital signs reviewed: Yes EKG Interpreted by Me: RATE (69), Sinus Rhythm, NORMAL AXIS, NORMAL INTERVALS ( ) - Radiology Exams Chest X-ray Interpretation: Teleradiologist Report (Chest x-ray remains clear. Heart not enlarged. Bony thorax intact. No new acute findings.) Ordered Tests: Active Orders 24 hr Category Date Time Status Ordnance Officer STAT Care 06/18/20 11:39 Active EKG-ER Only STAT Care 06/18/20 11:38 Active IV Insertion STAT Care 06/18/20 11:38 Active Pulse Oximetry (ED) STAT Care 06/18/20 11:38 Active CHEST 1 VIEW (PORTABLE) Stat Exams 06/18/20 11:39 Completed CBC W DIFF Stat Lab 06/18/20 11:55 Completed CMP Stat Lab 06/18/20 11:55 Completed MAGNESIUM Stat Lab 06/18/20 11:55 Completed NT PRO BNP Stat Lab 06/18/20 11:55 Completed POCT GLUCOSE Stat Lab 06/18/20 14:58 Completed TROPONIN Q3H Lab 06/18/20 11:55 Completed TROPONIN Q3H Lab 06/18/20 14:32 Completed TROPONIN Q3H Lab 06/18/20 17:45 Ordered TROPONIN Q3H Lab 06/18/20 20:45 Ordered TROPONIN Q3H Lab 06/18/20 23:45 Ordered Lab/Rad Data: Laboratory Result Diagrams 06/18/20 11:55 06/18/20 11:55 Laboratory Results 06/18/20 06/18/20 06/18/20 Range/Units 14:58 14:32 11:55 WBC (4.0-10.5) K/mm3 RBC (4.1-5.4) M/mm3 Hgb (12.0-16.0) gm/dl Hct (35-47) % MCV (78-100) fl MCH (26-32) pg MCHC (32-36) g/dl RDW (11.5-14.0) % Plt Count (150-450) K/mm3 MPV (7.5-11.0) fl Gran % (36.0-66.0) % Eos # (Auto) (0-0.5) Absolute Lymphs (auto) (1.0-4.6) Absolute Monos (auto) (0.0-1.3) Lymphocytes % (24.0-44.0) % Monocytes % (0.0-12.0) % Eosinophils % (0.00-5.0) % Basophils % (0.0-0.4) % Absolute Granulocytes (1.4-6.9) Basophils # (0-0.4) Sodium (137-145) mmol/L Potassium (3.5-5.1) mmol/L Chloride (98-107) mmol/L Carbon Dioxide (22-30) mmol/L Anion Gap (5-15) MEQ/L BUN (7-17) mg/dL Creatinine (0.52-1.04) mg/dL Estimated GFR ML/MIN Glucose (74-106) mg/dL POC Glucometer 190 H (74 to 106) mg/dL Calcium (8.4-10.2) mg/dL Magnesium (1.6-2.3) mg/dL Total Bilirubin (0.2-1.3) mg/dL AST (14-36) U/L ALT (0-35) U/L Alkaline Phosphatase (38-126) U/L Troponin I < 0.012 < 0.012 (0.000-0.034) ng/mL NT-Pro-B Natriuret Pep (0-900) pg/mL Serum Total Protein (6.3-8.2) g/dL Albumin (3.5-5.0) g/dL 06/18/20 06/18/20 Range/Units 11:55 11:55 WBC 10.0 (4.0-10.5) K/mm3 RBC 4.17 (4.1-5.4) M/mm3 Hgb 12.7 (12.0-16.0) gm/dl Hct 39.1 (35-47) % MCV 93.8 (78-100) fl MCH 30.5 (26-32) pg MCHC 32.5 (32-36) g/dl RDW 13.5 (11.5-14.0) % Plt Count 332 (150-450) K/mm3 MPV 10.6 (7.5-11.0) fl Gran % 75.9 H (36.0-66.0) % Eos # (Auto) 0.22 (0-0.5) Absolute Lymphs (auto) 1.50 (1.0-4.6) Absolute Monos (auto) 0.67 (0.0-1.3) Lymphocytes % 15.0 L (24.0-44.0) % Monocytes % 6.7 (0.0-12.0) % Eosinophils % 2.2 (0.00-5.0) % Basophils % 0.2 (0.0-0.4) % Absolute Granulocytes 7.59 H (1.4-6.9) Basophils # 0.02 (0-0.4) Sodium 137 (137-145) mmol/L Potassium 3.8 (3.5-5.1) mmol/L Chloride 102 (98-107) mmol/L Carbon Dioxide 28 (22-30) mmol/L Anion Gap 10.3 (5-15) MEQ/L BUN 14 (7-17) mg/dL Creatinine 0.70 (0.52-1.04) mg/dL Estimated GFR > 60.0 ML/MIN Glucose 346 H (74-106) mg/dL POC Glucometer (74 to 106) mg/dL Calcium 9.2 (8.4-10.2) mg/dL Magnesium 2.0 (1.6-2.3) mg/dL Total Bilirubin 0.80 (0.2-1.3) mg/dL AST 22 (14-36) U/L ALT 18 (0-35) U/L Alkaline Phosphatase 115 (38-126) U/L Troponin I (0.000-0.034) ng/mL NT-Pro-B Natriuret Pep 70.9 (0-900) pg/mL Serum Total Protein 7.9 (6.3-8.2) g/dL Albumin 4.1 (3.5-5.0) g/dL - Progress Progress: improved Progress Note: 06/18/20 15:13 Patient reassessed. No active chest pain. Work-up essentially negative. Troponin negative x2. We advised admission for cardiac rule out possible stress test. Patient declined. Patient states she is got responsibilities at home to attend to. Will discharge AMA. Patient understands that leaving AMA can result in increased risk of morbidity mortality short and long-term disability including delayed diagnosis and . In spite of her risks patient has decided to leave AGAINST MEDICAL ADVICE. An AMA form was signed by patient. Patient understand that she may return to our ED at any time for reevaluation if she changes her mind. Patient agrees to follow-up with her primary care doctor within 48 hours for reevaluation. Serum glucose 346. Accu-Chek 190. 06/18/20 15:16 Counseled pt/family regarding: lab results, diagnosis, need for follow-up, rad results - Departure Departure Disposition: AMA Clinical Impression: ACS (acute coronary syndrome), Chest pain, SOB (shortness of breath), Hyperglycemia, Leg swelling Condition: Stable Critical Care Time: No Referrals: LUCINDA PELLETIER [Primary Care Provider] - Instructions: Angina (DC), Chest Pain (DC) Additional Instructions: Discharge/Care Plan MARCELOTIFFANIE RICE was seen on 06/18/20 in the Emergency Room. The patient was counseled regarding Diagnosis,Lab results, Imaging studies, need for follow up and when to return to the Emergency Room. Prescriptions given: Discharge Note I have spoken with the patient and/or caregivers. I have explained the patient's condition, diagnosis and treatment plan based on the information available to me at this time. I have answered the patient's and/or caregiver's questions and addressed any concerns. The patient and/or caregivers have as good understanding of the patient's diagnosis, condition and treatment plan as can be expected at this point. The vital signs have been stable. The patient's condition is stable and appropriate for discharge from the emergency department. The patient will pursue further outpatient evaluation with the primary care physician or other designated or consulting physician as outlined in the discharge instructions. The patient and/or caregivers are agreeable to this plan of care and follow-up instructions have been explained in detail. The patient and/or caregivers have received these instruction. The patient/and or caregivers are aware that any significant change in condition or worsening of symptoms should prompt an immediate return to this or the closest emergency department or call 911.
[2020-06-18 11:57] LABS: Absolute Neutrophil Ct (ANC) 7.59 (1.4-6.9); BASOPHIL % 0.2 % (0.0-0.4); Basophil (Absolute #) 0.02 (0-0.4); Eosinophil % 2.2 % (0.00-5.0); Eosinophil (Absolute #) 0.22 (0-0.5); Hematocrit 39.1 % (35-47); Hemoglobin 12.7 gm/dl (12.0-16.0); Mean Cell Volume 93.8 fl (78-100); Mean Corpuscular Hemoglobin 30.5 pg (26-32); Mean Corpuscular Hgb Concent. 32.5 g/dl (32-36); Mean Platelet Volume 10.6 fl (7.5-11.0); Monocyte (Absolute #) 0.67 (0.0-1.3); Monocytes % 6.7 % (0.0-12.0); Neutrophil % 75.9 % (36.0-66.0); Platelet Count 332 K/mm3 (150-450); Red Blood Count 4.17 M/mm3 (4.1-5.4); Red Cell Distribution Width 13.5 % (11.5-14.0)
--- NOTE | 2020-06-18 12:07 | XRAY ---
Indication: Short of breath. Chest pain. Comparison: December 03, 2017. Portable chest remains clear. Heart not enlarged. Bony thorax intact. No new/acute findings.
[2020-06-18 12:19] LABS: ALBUMIN 4.1 g/dL (3.5-5.0); ALKALINE PHOSPHATASE 115 U/L (38-126); ANION GAP 10.3 MEQ/L (5-15); BLOOD UREA NITROGEN 14 mg/dL (7-17); CHLORIDE 102 mmol/L (98-107); Calcium 9.2 mg/dL (8.4-10.2); Carbon Dioxide 28 mmol/L (22-30); EST GLOMERULAR FILTRATION RATE > 60.0 ML/MIN; Glucose 346 mg/dL (74-106); NT PRO BNP 70.9 pg/mL (0-900); Potassium 3.8 mmol/L (3.5-5.1); SGOT/AST 22 U/L (14-36); SGPT/ALT 18 U/L (0-35); SODIUM 137 mmol/L (137-145); Total Protein 7.9 g/dL (6.3-8.2)
[2020-06-18 15:03] VITALS: BP 166/70; PULSE 64
[2020-06-18 15:17] VITALS: O2SAT 100
== END 2020-06-18 15:26 | disposition left against medical advice (07) ==
LOC: ED 11:38
DX: R07.9 Chest pain, unspecified (principal); R06.02 Shortness of breath; I24.9 Acute ischemic heart disease, unspecified; M79.89 Other specified soft tissue disorders; R73.9 Hyperglycemia, unspecified; Z79.899 Other long term (current) drug therapy
CPT/HCPCS: 36000; 36415; 71045; 80053; 82947; 83735; 83880; 84484; 85025; 93005; 93041; 94760; 99284